=== PATIENT | male | born 1980 | race Caucasian/White ===

== ENCOUNTER 2022-03-23 10:55 | Inpatient (IN) | payer OTHER, SELFPAY ==
[2022-03-23 10:59] VITALS: BP 111/70; PULSE 52; RESP 16; TEMP 36.8; O2SAT 96; BMI 27.0
[2022-03-23 11:13] VITALS: BP 111/70; PULSE 52; RESP 16; TEMP 36.8; O2SAT 96
[2022-03-23 11:33] LABS: SARS PCR* Negative SARS-CoV-2 (Negative)
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
[2022-03-23 12:44] LABS: Lactate* 1.3 mmol/L (0.5-1.9)
[2022-03-23 12:57] LABS: INR 1.08 (0.91-1.10); Prothrombin Time 14.7 Seconds
[2022-03-23 12:59] LABS: Albumin* 4.3 g/dL (3.3-5.0)
[2022-03-23] MEDS: ERTAPENEM 1 GM in 0.9 % SODIUM CHLORIDE Mini-bag 100 ML IVPB (12:59)
[2022-03-23 13:00] LABS: Chloride* 101 mmol/L (96-114); Potassium* 4.1 mmol/L (3.6-5.1); Sodium* 135 mmol/L (135-149)
[2022-03-23 13:02] LABS: Alkaline Phosphatase* 84 U/L (40-150); Aspartate Amino Transferase* 29 U/L (12-35); Bilirubin Total* 1.5 mg/dL (0.1-1.5); Blood Urea Nitrogen* 19 mg/dL (5-24); Carbon Dioxide* 29 mmol/L (20-32); Creatinine* 0.8 mg/dL (0.5-1.5); Est. Creatinine Clearance* 150.05; Estimated Glomerular Filt Rate 113 ml/min; Total Protein* 7.8 g/dL (6.0-8.3)
[2022-03-23 13:03] LABS: Alanine Aminotransferase* 23 U/L (4-50); Calcium* 9.2 mg/dL (8.4-10.6); Gamma Glutamyl Transpeptidase* 186 U/L (8-55); Glucose* 106 mg/dL (60-115)
[2022-03-23 13:19] LABS: Procalcitonin* 0.09 ng/mL (<0.50)
[2022-03-23 13:20] LABS: Ethanol* < 0.01 % (0.01-0.03)
--- NOTE | 2022-03-23 13:54 | CRLHL7_ITS ---
For Patients: As a result of the Century Cures Act, medical imaging exams and procedure reports are released immediately into your electronic medical record. You may view this report before your referring provider. If you have questions, please contact your health care provider. INDICATION: Injury. Red swollen toe. Concern for osteomyelitis. COMPARISON: None provided. TECHNIQUE: Short axis T1 and STIR, long axis T1 and STIR and sagittal T1 and STIR right forefoot sequences. FINDINGS: Indistinct narrowband of T1 and STIR marrow edema in the distal phalanx of the 2nd toe which has indistinct cortex and resorbed appearing tuft. Surrounding heterogeneous expanded edematous soft tissues without organized fluid. Shallow ulcer at the distal margin of the swollen 2nd toe. Small effusion 1st MTP joint and interphalangeal joint of the great toe. Upper normal fluid 2nd and 3rd metatarsophalangeal joints. Mild fatty infiltration and atrophy of the intrinsic muscles for denervation change. Incomplete visualization of probable neuropathic or degenerative cystic foci in the marrow of the proximal visualized 3rd and 4th metatarsals. IMPRESSION: Shallow focal osteomyelitis of the resorbed tuft and distal phalanx 2nd toe with surrounding cellulitis and shallow distal ulcer. Dictated by Severo Blue MD @ 03/23/2022 3:22:32 PM (Electronically Signed)
--- NOTE | 2022-03-23 14:33 | PC.NURSE ---
End of shift note: Pt. ambulated to the floor at 1100, accompanied by spouse. Covid test negative. VSS. HR Bradycardiac. Pt. is alert and oriented x4, denies any pain, N/V/SOB. Pt. IV in right forearm patent. Pt. tolerating reg. diet. Independent to BR and up independently in room/hallway.
[2022-03-23 15:30] VITALS: BP 112/64; PULSE 61; RESP 16; TEMP 36.9; O2SAT 98
[2022-03-23] MEDS: ACETAMINOPHEN 325 MG TABLET PO ×2 (15:35→22:28)
[2022-03-23] MEDS: FOLIC ACID 1 MG TABLET PO (15:35)
[2022-03-23] MEDS: THIAMINE 100 MG TABLET PO (15:35)
--- NOTE | 2022-03-23 17:33 | W.PM.PODPN ---
Podiatry-PN: Subj Subjective Date Seen: 03/23/22 Interval history: Patient seen bedside this afternoon following admission to the hospital. He was seen earlier today in clinic. He overall is doing well without complaint. Progress Note: A&P Assessment and plan (1) Osteomyelitis: Problem details: Second toe right foot Status: Acute Plan 2nd toe with no further purulent drainage. No increased necrotic tissue. Will treat with IV antibiotics for now and plan for definitive distal toe amputation once cellulitis has improved to the point that closure is possible. Recommend saline moistened gauze wet-to-dry dressing changes twice daily. Exam Narrative: Exam Narrative: General: No distress Vascular: Palpable pedal pulses. Capillary fill time less than 3 seconds all digits. Neuro: Diminished sensation to light touch right foot. Derm: Erythema circumferentially around the 2nd toe with extension along the dorsal foot and up the anterior lower leg ending just distal to the knee right foot. Open wound distal aspect of the 2nd toe right with exposed bone. No purulence. Musculoskeletal: Hammertoe deformities lesser digits right. Muscle strength 5/5 all quadrants. MRI: Osteomyelitis distal phalanx 2nd toe right foot. Const: Vital Signs, click to edit/add: Vital Signs - 24 hr 03/23/22 10:59 03/23/22 10:59 03/23/22 11:13 Temperature 98.2 F Pulse Rate [Right Pulse Oximeter] 52 L Respiratory Rate 16 16 16 Blood Pressure [Le ft Arm] 111/70 Pulse Oximetry 96 96 96 Oxygen Delivery Me thod Room Air Room Air Room Air 03/23/22 11:13 03/23/22 15:30 Temperature 98.2 F 98.5 F Pulse Rate [Right Pulse Oximeter] 52 L 61 Respiratory Rate 16 16 Blood Pressure [Le ft Arm] 111/70 112/64 Pulse Oximetry 96 98 Oxygen Delivery Me thod Room Air Room Air Documenting provider has reviewed patient's vital signs: yes Common normals: no apparent distress and oriented x3 General appearance: cooperative and comfortable Neuro: Common normals: oriented x3 Podiatry-PN: Obj Labs Labs: Laboratory Results - last 24 hr 03/23/22 03/23/22 03/23/22 10:56 12:27 12:27 INR Sodium 135 Potassium 4.1 Chloride 101 Carbon Dioxide 29 BUN 19 Creatinine 0.8 Estimated Creat Clear 150.05 Estimated GFR 113 Glucose 106 Hemoglobin A1c Lactate 1.3 Calcium 9.2 Total Bilirubin 1.5 GGT 186 H AST 29 ALT 23 Alkaline Phosphatase 84 Total Protein 7.8 Albumin 4.3 Procalcitonin 0.09 TSH Ethyl Alcohol < 0.01 L SARS-CoV-2 (PCR) Negative SARS-CoV-2 03/23/22 03/23/22 03/23/22 12:27 12:27 12:27 INR 1.08 Sodium Potassium Chloride Carbon Dioxide BUN Creatinine Estimated Creat Clear Estimated GFR Glucose Hemoglobin A1c 4.50 Lactate Calcium Total Bilirubin GGT AST ALT Alkaline Phosphatase Total Protein Albumin Procalcitonin TSH 1.300 Ethyl Alcohol SARS-CoV-2 (PCR) Imaging MR - Other: Radiologist's impression: Osteomyelitis distal phalanx right 2nd toe.
[2022-03-23] MEDS: LACTOBACILLUS ACIDOPHILUS 1 TABLET 2 TAB PO (17:37)
[2022-03-23 19:05] VITALS: BP 112/61; PULSE 62; RESP 16; TEMP 37.5; O2SAT 96
[2022-03-23] MEDS: GABAPENTIN 300 MG CAPSULE PO (20:47)
[2022-03-23] MEDS: allopurinoL 300 MG TABLET PO (20:47)
[2022-03-23] MEDS: DORZOLAMIDE/TIMOLOL 2-0.5% OPHTH 1 DROP EYE-BOTH (20:48)
[2022-03-23] MEDS: SODIUM CHLORIDE 0.9 % (FLUSH) 10 ML SYRINGE 5 ML IVF (20:48)
[2022-03-23] MEDS: LATANOPROST 0.005% OPHTH 1 DROP EYE-BOTH (20:48)
[2022-03-23] MEDS: TRAZODONE HCL 50 MG TABLET 100 MG PO (23:25)
[2022-03-23 23:30] VITALS: BP 104/52; PULSE 69; RESP 16; TEMP 36.6; O2SAT 97
--- NOTE | 2022-03-23 23:31 | PC.NURSE ---
Shift [id number]- Patient up independently in room. He complains of back pain- tylenol given with some relief. He states toe is not really bothersome. MD in and performs dressing change this evening, which is clean, dry and intact. Appetite intact.
[2022-03-24] VITALS (7 sets, daily range): BP systolic 106–134; BP diastolic 62–80; PULSE 54–74; RESP 16–18; TEMP 36.4–37.4; O2SAT 96–100
--- NOTE | 2022-03-24 06:22 | PC.NURSE ---
Addendum entered by Diane Song 03/24/22 06:37: CIWA scores have been 0, CWAS is a spelling error. Addendum entered by Diane Song 03/24/22 06:36: Pt CWAS scores have been 0 Original Note: Pt is alert and oriented x3, pleasant and cooperative. Pt reports 4/10 pain in lower back, PRN medications discussed but pt refused stating the pain is tolerable. Dressing to right toe is CDI. Pt is tolerating regular?and is up IND in room.
[2022-03-24 06:43] LABS: Hematocrit 41.3 % (37.0-53.0); Mean Corpuscular HGB Conc 34 gm/dL (32-36); Mean Corpuscular Hemoglobin 35 pg (26-34); Mean Corpuscular Volume 103 fL (80-100); Platelet Count* 167 K/uL (140-440); White Blood Count* 6.16 K/uL (4.50-11.00)
[2022-03-24 06:44] LABS: Slide Review Reflex No
[2022-03-24 06:52] LABS: Chloride* 103 mmol/L (96-114)
[2022-03-24 06:53] LABS: Potassium* 4.3 mmol/L (3.6-5.1); Sodium* 139 mmol/L (135-149)
[2022-03-24 06:56] LABS: Blood Urea Nitrogen* 16 mg/dL (5-24); Carbon Dioxide* 32 mmol/L (20-32); Creatinine* 0.7 mg/dL (0.5-1.5); Est. Creatinine Clearance* 171.48; Estimated Glomerular Filt Rate 117 ml/min; Glucose* 102 mg/dL (60-115)
[2022-03-24 06:57] LABS: Calcium* 9.3 mg/dL (8.4-10.6)
[2022-03-24 06:59] LABS: C Reactive Protein* 3.3 mg/dL (0.5-1.0)
[2022-03-24 07:12] LABS: Procalcitonin* 0.08 ng/mL (<0.50)
[2022-03-24] MEDS: LACTOBACILLUS ACIDOPHILUS 1 TABLET 2 TAB PO ×3 (07:47→17:55)
[2022-03-24] MEDS: FOLIC ACID 1 MG TABLET PO (08:49)
[2022-03-24] MEDS: GABAPENTIN 100 MG CAPSULE PO ×2 (08:49→14:24)
[2022-03-24] MEDS: MULTIVITAMIN/MINERALS 1 TABLET 1 TAB PO (08:50)
[2022-03-24] MEDS: DORZOLAMIDE/TIMOLOL 2-0.5% OPHTH 1 DROP EYE-BOTH ×2 (08:50→20:47)
[2022-03-24] MEDS: SODIUM CHLORIDE 0.9 % (FLUSH) 10 ML SYRINGE 5 ML IVF ×4 (08:51→20:48)
[2022-03-24] MEDS: ERTAPENEM 1 GM in 0.9 % SODIUM CHLORIDE Mini-bag 100 ML IVPB (12:00)
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
[2022-03-24] MEDS: THIAMINE 100 MG TABLET PO (14:24)
[2022-03-24] MEDS: CEFAZOLIN 2 GM in 0.9 % SODIUM CHLORIDE Mini-bag 100 ML IVPB (17:59)
--- NOTE | 2022-03-24 18:11 | P.PODPN_ITS ---
Podiatry-PN: Subj Subjective Date Seen: 03/24/22 Interval history: Daily Progress Note - Hospital Day #: 2 CC: right 2nd toe osteomyelitis with surrounding cellulitis OVERNIGHT UPDATES FROM STAFF & MED, LAB, IMAGING UPDATES -patient did well overnight. Slept well. Is ambulating in his room without significant pain. His chills have improved. Vital signs are stable. CBC drawn yesterday in the clinic reveals a leukocytosis of 11.6 which is now down to 6.6 CRP was originally 4.48 and is down to 3.3 Uric acid was 3.8 yesterday ESR was 25 This morning's basic electrolytes are normal. Renal function is normal. Wound culture from clinic reveals Staph aureus and E coli. Sensitivities are still pending. MRI right foot shallow focal osteomyelitis of the resorbed tuft and distal phalanx 2nd toe with surrounding cellulitis and shallow distal ulcer. Objective: Vitals: Blood pressure 112/62, respiration rate 18, temp 99.3?, O2 sat 100 General: No distress. Vascular: Palpable pedal pulses. Neuro: Diminished sensation to light touch right. Derm: Erythema and edema are significantly improved right 2nd toe. Erythema extending to the dorsal foot and leg nearly resolved. Open wound distal toe with exposed bone without purulence. No increased necrosis of the surrounding tissues. Musculoskeletal: Flexion deformity 2nd digit right. Muscle strength 5/5 all quadrants. Assessment: Osteomyelitis distal phalanx 2nd toe right, resolving cellulitis 2nd toe right Plan: He has been changed to Ancef which should cover the staph and E coli. Awaiting sensitivities for final determination of outpatient antibiotics. Plan for operating room Monday for amputation of the distal phalanx and primary closure. If culture sensitivities are known at that time plan for discharge home on Monday. Foot packing was removed and saline moistened gauze packing replaced. Sterile dressing applied. Total time is 20 minutes with greater than 50% spent in counseling and coordination of care. Exam 2 Const: Vital Signs, click to edit/add: Vital Signs - 24 hr 03/23/22 19:05 03/23/22 23:30 03/23/22 23:30 Temperature 99.5 F 97.9 F Pulse Rate [Right Pulse Oximeter] 62 69 69 Respiratory Rate 16 16 16 Blood Pressure [Le ft Arm] 112/61 104/52 L Pulse Oximetry 96 97 Oxygen Delivery Me thod Room Air 03/24/22 03:00 03/24/22 07:00 03/24/22 07:00 Temperature 97.5 F L 98.2 F 98.2 F Pulse Rate [Right Pulse Oximeter] 54 L 62 62 Respiratory Rate 16 18 18 Blood Pressure [Le ft Arm] 106/64 110/69 110/69 Pulse Oximetry 98 98 98 Oxygen Delivery Me thod Room Air Room Air Room Air 03/24/22 07:00 03/24/22 11:00 03/24/22 11:00 Temperature 99.1 F 99.1 F Pulse Rate [Right Pulse Oximeter] 62 74 74 Respiratory Rate 18 18 18 Blood Pressure [Le ft Arm] 132/67 132/67 Pulse Oximetry 99 99 Oxygen Delivery Me thod Room Air Room Air 03/24/22 15:00 03/24/22 15:00 03/24/22 15:00 Temperature 99.3 F 99.3 F Pulse Rate [Right Pulse Oximeter] 54 L 54 L 54 L Respiratory Rate 18 18 18 Blood Pressure [Le ft Arm] 112/62 112/62 Pulse Oximetry 100 100 Oxygen Delivery Me thod Room Air Room Air Podiatry-PN: Obj Labs Labs: Laboratory Results - last 24 hr 03/24/22 03/24/22 06:12 06:12 WBC 6.16 RBC 4.00 L Hgb 14.0 Hct 41.3 MCV 103 H MCH 35 H MCHC 34 Plt Count 167 Sodium 139 Potassium 4.3 Chloride 103 Carbon Dioxide 32 BUN 16 Creatinine 0.7 Estimated Creat Clear 171.48 Estimated GFR 117 Glucose 102 Calcium 9.3 C-Reactive Protein 3.3 H Procalcitonin 0.08
--- NOTE | 2022-03-24 18:53 | PC.NURSE ---
End of Shift: Patient pleasant and cooperative. Patient vitally stable, lung clear, BS WNL, IV intact. Patient rates back pain 3/10 no pain meds given. Patient independent in room. Patient dressing change performed x2, second dressing done by serafin. Toe packed with wet to dry gauze, wrapped in kerlix, then talia bandage. Patient tolerating regular diet, urinating, and had 2 BMs. Second great toe inflamed and reddened, scan drainage.
[2022-03-24] MEDS: allopurinoL 300 MG TABLET PO (20:45)
[2022-03-24] MEDS: ACETAMINOPHEN 325 MG TABLET PO (20:45)
[2022-03-24] MEDS: GABAPENTIN 300 MG CAPSULE PO (20:45)
[2022-03-24] MEDS: LATANOPROST 0.005% OPHTH 1 DROP EYE-BOTH (20:48)
[2022-03-24] MEDS: TRAZODONE HCL 50 MG TABLET 100 MG PO (20:54)
[2022-03-25] VITALS (7 sets, daily range): BP systolic 123–138; BP diastolic 66–87; PULSE 52–68; RESP 18; TEMP 36.6–37.2; O2SAT 96–100
[2022-03-25] MEDS: CEFAZOLIN 2 GM in 0.9 % SODIUM CHLORIDE Mini-bag 100 ML IVPB ×3 (01:39→17:40)
[2022-03-25 06:46] LABS: Hematocrit 41.1 % (37.0-53.0); Hemoglobin* 13.9 gm/dL (13.5-17.5); Mean Corpuscular HGB Conc 34 gm/dL (32-36); Mean Corpuscular Hemoglobin 35 pg (26-34); Mean Corpuscular Volume 104 fL (80-100); Platelet Count* 173 K/uL (140-440); Red Blood Count 3.94 m/uL (4.30-5.90); White Blood Count* 4.83 K/uL (4.50-11.00)
--- NOTE | 2022-03-25 06:50 | PC.NURSE ---
VSS on RA. Patient is alert and oriented x4, uses call light appropriately. Pt c/o having dull pain to lower back, but declined pain meds. PRN Tylenol given for low grade temp. Pt is independent with transfers, continent of bowel and bladder. IV antibiotic infused x1 this shift. Pt appears stable, call light within reach.
[2022-03-25 07:03] LABS: Slide Review Reflex No
[2022-03-25 07:08] LABS: Chloride* 107 mmol/L (96-114); Potassium* 3.9 mmol/L (3.6-5.1); Sodium* 141 mmol/L (135-149)
[2022-03-25 07:11] LABS: Carbon Dioxide* 30 mmol/L (20-32); Creatinine* 0.6 mg/dL (0.5-1.5); Est. Creatinine Clearance* 200.06; Estimated Glomerular Filt Rate 123 ml/min
[2022-03-25 07:12] LABS: Blood Urea Nitrogen* 13 mg/dL (5-24); Calcium* 9.3 mg/dL (8.4-10.6); Glucose* 95 mg/dL (60-115)
[2022-03-25 07:26] LABS: Procalcitonin* 0.07 ng/mL (<0.50)
[2022-03-25] MEDS: GABAPENTIN 100 MG CAPSULE PO ×2 (09:05→14:20)
[2022-03-25] MEDS: MULTIVITAMIN/MINERALS 1 TABLET 1 TAB PO (09:05)
[2022-03-25] MEDS: FOLIC ACID 1 MG TABLET PO (09:05)
[2022-03-25] MEDS: LACTOBACILLUS ACIDOPHILUS 1 TABLET 2 TAB PO ×3 (09:05→17:39)
[2022-03-25] MEDS: DORZOLAMIDE/TIMOLOL 2-0.5% OPHTH 1 DROP EYE-BOTH ×2 (09:06→20:28)
[2022-03-25] MEDS: SODIUM CHLORIDE 0.9 % (FLUSH) 10 ML SYRINGE 5 ML IVF ×2 (09:53→20:28)
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
[2022-03-25] MEDS: THIAMINE 100 MG TABLET PO (14:20)
[2022-03-25] MEDS: allopurinoL 300 MG TABLET PO (20:26)
[2022-03-25] MEDS: GABAPENTIN 300 MG CAPSULE PO (20:26)
[2022-03-25] MEDS: LATANOPROST 0.005% OPHTH 1 DROP EYE-BOTH (20:27)
[2022-03-26] VITALS (11 sets, daily range): BP systolic 105–129; BP diastolic 65–85; PULSE 37–50; RESP 16–18; TEMP 36.4–36.7; O2SAT 95–98
[2022-03-26] MEDS: CEFAZOLIN 2 GM in 0.9 % SODIUM CHLORIDE Mini-bag 100 ML IVPB ×2 (01:53→11:20)
[2022-03-26 06:35] LABS: Hematocrit 39.8 % (37.0-53.0); Hemoglobin* 13.3 gm/dL (13.5-17.5); Mean Corpuscular HGB Conc 33 gm/dL (32-36); Mean Corpuscular Hemoglobin 35 pg (26-34); Mean Corpuscular Volume 104 fL (80-100); Platelet Count* 170 K/uL (140-440); Red Blood Count 3.83 m/uL (4.30-5.90); White Blood Count* 5.25 K/uL (4.50-11.00)
[2022-03-26 06:47] LABS: Slide Review Reflex No
[2022-03-26 06:51] LABS: Chloride* 109 mmol/L (96-114)
[2022-03-26 06:52] LABS: Potassium* 4.1 mmol/L (3.6-5.1); Sodium* 140 mmol/L (135-149)
[2022-03-26 06:54] LABS: Creatinine* 0.5 mg/dL (0.5-1.5); Est. Creatinine Clearance* 240.08; Estimated Glomerular Filt Rate 130 ml/min
--- NOTE | 2022-03-26 06:54 | PC.NURSE ---
Shift note: Pt is doing well this shift. NPO status maintained for possible surgery today. Dressing changed, small discharges noted, granulation tissue appears to be filling in. Swelling and redness to the reduced. Make needs and used call light appropriately. Denied Pain, SOB and. Vitally stable.Pt had good night sleep.
[2022-03-26 06:55] LABS: Blood Urea Nitrogen* 12 mg/dL (5-24); Calcium* 8.9 mg/dL (8.4-10.6); Carbon Dioxide* 27 mmol/L (20-32); Glucose* 96 mg/dL (60-115)
[2022-03-26 06:58] LABS: C Reactive Protein* 1.2 mg/dL (0.5-1.0)
[2022-03-26 07:10] LABS: Procalcitonin* 0.06 ng/mL (<0.50)
--- NOTE | 2022-03-26 07:17 | P.PODPN_ITS ---
Podiatry-PN: Subj Subjective Time Seen by Provider: 20:32 Date Seen: 03/25/22 Interval history: Daily Progress Note Day #: 3 CC: right 2nd toe osteomyelitis with surrounding cellulitis OVERNIGHT UPDATES FROM STAFF & MED, LAB, IMAGING UPDATES -patient did well overnight. Slept well. Is ambulating in his room without significant pain. Vital signs are stable. Wound culture from clinic reveals Staph aureus and E coli. Chris sensitive. MRI right foot shallow focal osteomyelitis of the resorbed tuft and distal phalanx 2nd toe with surrounding cellulitis and shallow distal ulcer. Objective: Vitals: Blood pressure 115/74, respiration rate 18, temp 97.9?, O2 sat 97 General: No distress. Vascular: Palpable pedal pulses. Neuro: Diminished sensation to light touch right. Derm: Erythema and edema with continued improvement right 2nd toe. Erythema e xtending to the dorsal foot and leg resolved. Open wound distal toe with exposed bone without purulence. No increased necrosis of the surrounding tissues. Musculoskeletal: Flexion deformity 2nd digit right. Muscle strength 5/5 all quadrants. Assessment: Osteomyelitis distal phalanx 2nd toe right, resolving cellulitis 2nd toe right Plan: Continue Ancef which should cover the staph and E coli. Awaiting sensitivities for final determination of outpatient antibiotics. Plan for operating room tomorrow morning for amputation of the distal phalanx and primary closure. If culture sensitivities are known at that time plan for discharge home on Monday afternoon. Foot packing was removed and saline moistened gauze packing replaced. Sterile dressing applied. Total time is 20 minutes with greater than 50% spent in counseling and coordination of care. Exam Const: Vital Signs, click to edit/add: Vital Signs - 24 hr 03/25/22 08:36 03/25/22 17:05 03/25/22 17:11 Temperature 98.5 F 99 F 99 F Pulse Rate [Right Pulse Oximeter] 67 52 L 52 L Respiratory Rate 18 18 18 Blood Pressure [Le ft Arm] 123/66 138/78 138/78 Pulse Oximetry 96 100 100 Oxygen Delivery Me thod Room Air Room Air Room Air 03/25/22 19:00 03/25/22 21:00 03/25/22 23:00 Temperature 98.9 F 98.9 F 98.9 F Pulse Rate [Right Pulse Oximeter] 57 L 57 L 59 L Respiratory Rate 18 18 18 Blood Pressure [Le ft Arm] 133/77 133/77 137/87 Pulse Oximetry 97 97 97 Oxygen Delivery Me thod Room Air Room Air Room Air 03/26/22 01:00 03/26/22 03:00 03/26/22 05:00 Temperature 97.9 F 97.9 F 97.9 F Pulse Rate [Right Pulse Oximeter] 45 L 45 L 45 L Respiratory Rate 18 18 18 Blood Pressure [Le ft Arm] 115/74 115/74 115/74 Pulse Oximetry 97 97 97 Oxygen Delivery Me thod Room Air Room Air Room Air Podiatry-PN: Obj Labs Labs: Laboratory Results - last 24 hr 03/25/22 03/26/22 03/26/22 06:04 06:10 06:10 WBC 5.25 RBC 3.83 L Hgb 13.3 L Hct 39.8 MCV 104 H MCH 35 H MCHC 33 Plt Count 170 Sodium 141 140 Potassium 3.9 4.1 Chloride 107 109 Carbon Dioxide 30 27 BUN 13 12 Creatinine 0.6 0.5 Estimated Creat Clear 200.06 240.08 Estimated GFR 123 130 Glucose 95 96 Calcium 9.3 8.9 C-Reactive Protein 2.0 H 1.2 H Procalcitonin 0.07 0.06
--- NOTE | 2022-03-26 08:41 | PM.GSPRC ---
Operative Note Date of procedure: 03/26/22 Pre-op diagnosis: Osteomyelitis 2nd toe right foot Post-op diagnosis: Osteomyelitis 2nd toe right foot Type of Procedure: Partial amputation 2nd toe right foot Indications: Patient has underlying osteomyelitis of the 2nd toe right foot. Cellulitis has improved to the point where amputation is possible. I reviewed the procedure, recovery, expectations and potential complications. Discussed the importance of removing the infected bone to resolve the infection completely. Also removing the distal phalanx will reduce chances of future problems. Potential complications discussed which include but are not limited to: Poor wound healing, continued infection, potential need for future surgery, deep venous thrombosis, pulmonary embolism and . All questions answered. Written consent obtained. Procedure Description: After discussing the risks and benefits of the procedure, the patient signed informed consent.? The operative site was marked and the patient was brought to the operating room and placed on the operating table in supine position.? Care was taken to pad the patient's pressure points.?? The patient was then given sedation by anesthesia and I injected the right foot with 10 mL 0.5% Marcaine plain.?? The operative site was then prepped and draped in the usual sterile fashion.? A time-out was then performed. The right foot was exsanguinated and ankle tourniquet inflated to 250 mm Hg. Transverse incision was made proximal to the nail plate directly over the distal interphalangeal joint. Incision coursed distally around the tip of the toe meeting the proximal incision. Incision was carried down through the distal interphalangeal joint in the distal phalanx was disarticulated and removed in total. Surrounding tissues are debrided of any necrotic tissue. There is no purulence overall tissues appeared quite healthy. Bone sent to pathology in formalin. Wound was thoroughly irrigated normal sterile saline. Tourniquet was released and all bleeding vessels cauterized. Incision closed with 3-0 nylon. Following closure the distal toe had excellent capillary fill time. Sterile dressings were then applied. The patient was then woken and transported to [facility] in stable condition. The patient tolerated the procedure well. Findings: Distal phalanx sent to pathology. Complications: None apparent Anesthesia: MAC and local Surgeon: Otoniel Gordillo DPM Estimated blood loss (mL): 5 Additional Specimen Information: Distal phalanx 2nd toe right Condition: stable Disposition: floor
--- NOTE | 2022-03-26 08:49 | W.ANESCHARGE ---
Anesthesia Charges Start Date/Time Anesthesia Start Date: 03/26/22 Anesthesia Start Time: 07:55 Stop Date/Time Anesthesia Stop Date: 03/26/22 Anesthesia Stop Time: 08:42
--- NOTE | 2022-03-26 10:59 | REH.PT ---
Pt educated on crutch use. Able to demonstrate safe and Ind amb with ax crutches. No Charge.
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
== END 2022-03-26 12:15 | disposition home or self-care (01) | DRG 465 ==
PROVIDERS: Podiatrist; Admitting Provider Family Medicine; PCP Family Medicine; Visit Provider Family Medicine
PROC: 0Y6R0Z3 Detachment at Right 2nd Toe, Low, Open Approach (ICD-10-PCS; principal; 2022-03-26 08:00)
DX: M86.171 Other acute osteomyelitis, right ankle and foot (principal); L97.512 Non-pressure chronic ulcer of other part of right foot with fat layer exposed; L03.031 Cellulitis of right toe; G62.9 Polyneuropathy, unspecified; F10.20 Alcohol dependence, uncomplicated; F51.04 Psychophysiologic insomnia; I10 Essential (primary) hypertension; M10.9 Gout, unspecified; F41.9 Anxiety disorder, unspecified; B96.20 Unspecified Escherichia coli [E. coli] as the cause of diseases classified elsewhere; B95.61 Methicillin susceptible Staphylococcus aureus infection as the cause of diseases classified elsewhere
CPT/HCPCS: 01480; 36415; 73718; 80048; 80053; 82077; 82977; 83036; 83605; 84145; 84443; 85027; 85610; 86140; 87040; 87635; 88305; 88311; A9153; A9270; G0378; G0379; J0690; J1100; J1335; J2250; J2405; J2704; J3010

== ENCOUNTER 2022-05-04 08:42 | Emergency (ER) | payer OTHER, SELFPAY ==
[2022-05-04] VITALS (31 sets, daily range): BP systolic 91–135; BP diastolic 53–89; PULSE 38–55; RESP 22; TEMP 35.8; O2SAT 93–100; BMI 26.0
--- NOTE | 2022-05-04 09:05 | ED_ITS ---
HPI - General Adult General Time Seen by Provider: 09:05 <Meghann Duvall MD - Last Filed: 05/04/22 11:25> Date Seen: 05/04/22 <Meghann Duvall MD - Last Filed: 05/04/22 11:25> Chief complaint: Nausea/Vomiting <Meghann Duvall MD - Last Filed: 05/04/22 11:25> Stated complaint: unable to eat - diarrhea <Meghann Duvall MD - Last Filed: 05/04/22 11:25> Time Seen by Provider: 05/04/22 08:53 <Meghann Duvall MD - Last Filed: 05/04/22 11:25> Source: patient and RN notes reviewed <Meghann Duvall MD - Last Filed: 05/04/22 11:25> Mode of arrival: ambulatory <Meghann Duvall MD - Last Filed: 05/04/22 11:25> Limitations: no limitations <Meghann Duvall MD - Last Filed: 05/04/22 11:25> History of Present Illness HPI narrative: This 42-year-old male is coming in with nausea and diarrhea. He has had diarrhea for about 2 weeks now, states this last week has been much worse. Really cannot eat anything, everything is going through. Has had some nausea. Did have dry heaves this morning but it is the 1st time he has had anything like this. He was hospitalized for osteomyelitis and was on antibiotics for an extended period, has been off them about 3 weeks. He does have a history of C difficile colitis and he states it feels exactly like that. He did bring a stool specimen in to clinic and the results was negative yesterday. He has lost reportedly about 25 lb through this. No significant abdominal pain, no blood in stool, no recent travel, no fevers associated with this. Overall feeling weak. <Meghann Duvall MD - Last Filed: 05/04/22 11:25> Related Data Home medications: Home Medications Medication Instructions Recorded Confirmed allopurinol 300 mg tablet 300 mg PO HS 03/23/22 03/23/22 atenolol 50 mg tablet 50 mg PO HS 03/23/22 03/23/22 brimonidine 0.2 %-timolol 0.5 % 1 drp ophthalmic (eye) BID 03/23/22 03/23/22 eye drops hydrochlorothiazide 25 mg tablet 25 mg PO HS 03/23/22 03/23/22 latanoprost 0.005 % eye drops 1 drp ophthalmic (eye) HS 03/23/22 03/23/22 lisinopril 40 mg tablet 40 mg PO HS 03/23/22 03/23/22 melatonin 10 mg capsule 40 mg PO HS PRN 03/23/22 03/23/22 sumatriptan succinate 50 mg tablet See Rx Instructions PO .COMPLEX 03/23/22 03/23/22 (Imitrex) Previous Rx's Medication Instructions Recorded Lactobacillus acidophilus 0.5 mg 1 mg PO TIDWM #60 tabs 03/26/22 (100 million cell) tablet amoxicillin 500 mg-potassium 1 tab PO BID #20 tabs 03/26/22 clavulanate 125 mg tablet (Augmentin) gabapentin 300 mg capsule 300 mg PO HS #30 caps 03/26/22 trazodone 50 mg tablet 100 mg PO HS PRN #30 tabs 03/26/22 <Meghann Duvall MD - Last Filed: 05/04/22 11:25> Allergies/adverse reactions: Allergies Allergy/AdvReac Type Severity Reaction Status Date / Time No Known Drug Allergies Allergy Verified 05/04/22 08:50 <Meghann Duvall MD - Last Filed: 05/04/22 11:25> Review of Systems Status of ROS: Reports: 10 or more systems reviewed and unremarkable except as noted in History and below <Meghann Duvall MD - Last Filed: 05/04/22 11:25> [facility] Medical History: Medical History Alcohol dependence, daily use Chronic insomnia Glaucoma Gout History of Clostridium difficile colitis History of sepsis History of upper gastrointestinal hemorrhage Hypertension Migraines Neuropathy <Meghann Duvall MD - Last Filed: 05/04/22 11:25> Surgical History: Surgical History Status post appendectomy <Meghann Duvall MD - Last Filed: 05/04/22 11:25> Family History: Family History Mother VTE (venous thromboembolism) <Meghann Duvall MD - Last Filed: 05/04/22 11:25> Social History: 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 Chews tobacco daily. 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 Vielka is emergency contact Designates full code status Highest level of school completed/degree received: high school graduate Smoking Status: Never smoker Do you use any of these nicotine containing products: Smokeless Tobacco Second hand tobacco smoke exposure: No How often do you have a drink containing alcohol: 4 or more times a week Alcohol type: beer and wine How many standard drinks containing alcohol do you have on a typical day: 1 or 2 How often do you have six or more drinks on one occasion: Weekly AUDIT-C Alcohol total score: 7 Non-prescribed substance use: denies use Caffeine: No service: No <Meghann Duvall MD - Last Filed: 05/04/22 11:25> Exam Const: Vital Signs, click to edit/add: Vital Signs - 24 hr 05/04/22 08:50 05/04/22 09:40 05/04/22 08:57 Temperature 96.5 F L Pulse Rate 50 L Pulse Rate [Pulse Oximeter] 55 L Respiratory Rate 22 Blood Pressure Blood Pressure [Le ft Upper Arm] 120/89 Pulse Oximetry 100 94 100 Oxygen Delivery Me thod Room Air 05/04/22 09:00 05/04/22 09:01 05/04/22 09:15 Temperature Pulse Rate 50 L 47 L 47 L Pulse Rate [Pulse Oximeter] Respiratory Rate Blood Pressure 107/69 Blood Pressure [Le ft Upper Arm] Pulse Oximetry 99 97 95 Oxygen Delivery Me thod 05/04/22 09:30 05/04/22 09:32 05/04/22 09:45 Temperature Pulse Rate 45 L 45 L 41 L Pulse Rate [Pulse Oximeter] Respiratory Rate Blood Pressure 107/59 L Blood Pressure [Le ft Upper Arm] Pulse Oximetry 97 96 95 Oxygen Delivery Me thod 05/04/22 10:00 05/04/22 10:02 05/04/22 10:15 Temperature Pulse Rate 39 L 44 L 38 L Pulse Rate [Pulse Oximeter] Respiratory Rate Blood Pressure 91/58 L Blood Pressure [Le ft Upper Arm] Pulse Oximetry 94 96 93 Oxygen Delivery Me thod 05/04/22 10:30 05/04/22 10:32 05/04/22 10:45 Temperature Pulse Rate 39 L 50 L 43 L Pulse Rate [Pulse Oximeter] Respiratory Rate Blood Pressure 109/71 Blood Pressure [Le ft Upper Arm] Pulse Oximetry 97 98 97 Oxygen Delivery Me thod 05/04/22 11:00 05/04/22 11:02 05/04/22 11:03 Temperature Pulse Rate 42 L 49 L 41 L Pulse Rate [Pulse Oximeter] Respiratory Rate Blood Pressure 115/60 Blood Pressure [Le ft Upper Arm] Pulse Oximetry 99 99 99 Oxygen Delivery Me thod 05/04/22 11:24 05/04/22 11:30 05/04/22 11:32 Temperature Pulse Rate 50 L 48 L 47 L Pulse Rate [Pulse Oximeter] Respiratory Rate Blood Pressure 113/64 Blood Pressure [Le ft Upper Arm] Pulse Oximetry 100 95 97 Oxygen Delivery Me thod 05/04/22 11:45 05/04/22 12:00 05/04/22 12:02 Temperature Pulse Rate 39 L 40 L 45 L Pulse Rate [Pulse Oximeter] Respiratory Rate Blood Pressure 135/73 Blood Pressure [Le ft Upper Arm] Pulse Oximetry 95 95 97 Oxygen Delivery Me thod 05/04/22 12:15 05/04/22 12:30 05/04/22 12:32 Temperature Pulse Rate 38 L 39 L 39 L Pulse Rate [Pulse Oximeter] Respiratory Rate Blood Pressure 102/53 L Blood Pressure [Le ft Upper Arm] Pulse Oximetry 93 96 95 Oxygen Delivery Me thod 05/04/22 12:45 05/04/22 13:00 05/04/22 13:02 Temperature Pulse Rate 39 L 43 L 39 L Pulse Rate [Pulse Oximeter] Respiratory Rate Blood Pressure 115/63 Blood Pressure [Le ft Upper Arm] Pulse Oximetry 96 95 95 Oxygen Delivery Me thod 05/04/22 13:15 Temperature Pulse Rate 45 L Pulse Rate [Pulse Oximeter] Respiratory Rate Blood Pressure Blood Pressure [Le ft Upper Arm] Pulse Oximetry 98 Oxygen Delivery Me thod <Meghann Duvall MD - Last Filed: 05/04/22 11:25> Vital Signs, click to edit/add: Vital Signs - 24 hr 05/04/22 08:50 05/04/22 09:40 05/04/22 08:57 Temperature 96.5 F L Pulse Rate 50 L Pulse Rate [Pulse Oximeter] 55 L Respiratory Rate 22 Blood Pressure Blood Pressure [Le ft Upper Arm] 120/89 Pulse Oximetry 100 94 100 Oxygen Delivery Me thod Room Air 05/04/22 09:00 05/04/22 09:01 05/04/22 09:15 Temperature Pulse Rate 50 L 47 L 47 L Pulse Rate [Pulse Oximeter] Respiratory Rate Blood Pressure 107/69 Blood Pressure [Le ft Upper Arm] Pulse Oximetry 99 97 95 Oxygen Delivery Me thod 05/04/22 09:30 05/04/22 09:32 05/04/22 09:45 Temperature Pulse Rate 45 L 45 L 41 L Pulse Rate [Pulse Oximeter] Respiratory Rate Blood Pressure 107/59 L Blood Pressure [Le ft Upper Arm] Pulse Oximetry 97 96 95 Oxygen Delivery Me thod 05/04/22 10:00 05/04/22 10:02 05/04/22 10:15 Temperature Pulse Rate 39 L 44 L 38 L Pulse Rate [Pulse Oximeter] Respiratory Rate Blood Pressure 91/58 L Blood Pressure [Le ft Upper Arm] Pulse Oximetry 94 96 93 Oxygen Delivery Me thod 05/04/22 10:30 05/04/22 10:32 05/04/22 10:45 Temperature Pulse Rate 39 L 50 L 43 L Pulse Rate [Pulse Oximeter] Respiratory Rate Blood Pressure 109/71 Blood Pressure [Le ft Upper Arm] Pulse Oximetry 97 98 97 Oxygen Delivery Me thod 05/04/22 11:00 05/04/22 11:02 05/04/22 11:03 Temperature Pulse Rate 42 L 49 L 41 L Pulse Rate [Pulse Oximeter] Respiratory Rate Blood Pressure 115/60 Blood Pressure [Le ft Upper Arm] Pulse Oximetry 99 99 99 Oxygen Delivery Me thod 05/04/22 11:24 05/04/22 11:30 05/04/22 11:32 Temperature Pulse Rate 50 L 48 L 47 L Pulse Rate [Pulse Oximeter] Respiratory Rate Blood Pressure 113/64 Blood Pressure [Le ft Upper Arm] Pulse Oximetry 100 95 97 Oxygen Delivery Me thod 05/04/22 11:45 05/04/22 12:00 05/04/22 12:02 Temperature Pulse Rate 39 L 40 L 45 L Pulse Rate [Pulse Oximeter] Respiratory Rate Blood Pressure 135/73 Blood Pressure [Le ft Upper Arm] Pulse Oximetry 95 95 97 Oxygen Delivery Me thod 05/04/22 12:15 05/04/22 12:30 05/04/22 12:32 Temperature Pulse Rate 38 L 39 L 39 L Pulse Rate [Pulse Oximeter] Respiratory Rate Blood Pressure 102/53 L Blood Pressure [Le ft Upper Arm] Pulse Oximetry 93 96 95 Oxygen Delivery Me thod 05/04/22 12:45 05/04/22 13:00 05/04/22 13:02 Temperature Pulse Rate 39 L 43 L 39 L Pulse Rate [Pulse Oximeter] Respiratory Rate Blood Pressure 115/63 Blood Pressure [Le ft Upper Arm] Pulse Oximetry 96 95 95 Oxygen Delivery Me thod 05/04/22 13:15 Temperature Pulse Rate 45 L Pulse Rate [Pulse Oximeter] Respiratory Rate Blood Pressure Blood Pressure [Le ft Upper Arm] Pulse Oximetry 98 Oxygen Delivery Me thod <Eitan Avelar MD - Last Filed: 05/04/22 14:40> Documenting provider has reviewed patient's vital signs: yes <Meghann Duvall MD - Last Filed: 05/04/22 11:25> Common normals: no apparent distress, average body habitus, oriented x3, no limitations and alert <Meghann Duvall MD - Last Filed: 05/04/22 11:25> General appearance: cooperative, comfortable, well kempt and well developed <Meghann Duvall MD - Last Filed: 05/04/22 11:25> Other: In no distress but looks like he does not feel well. <Meghann Duvall MD - Last Filed: 05/04/22 11:25> HENMT: Common normals: normocephalic, head/scalp atraumatic, hearing grossly normal bilaterally, external nose normal, moist oral mucous membranes, oropharynx normal, dentition normal and gingiva normal <Meghann Perez MD - Last Filed: 05/04/22 11:25> Head and scalp: normocephalic and atraumatic <Meghann Duvall MD - Last Filed: 05/04/22 11:25> Nose: external nose normal <Meghann Duvall MD - Last Filed: 05/04/22 11:25> Eye: Common normals: PERRL, EOMs intact bilaterally, conjunctivae normal and no scleral icterus <Meghann Duvall MD - Last Filed: 05/04/22 11:25> Conjunctiva: conjunctiva(e) normal <Meghann Duvall MD - Last Filed: 05/04/22 11:25> Pupil: PERRL <Meghann Duvall MD - Last Filed: 05/04/22 11:25> Neck & C-Spine: Common normals: full ROM, no lymphadenopathy, supple, no meningeal signs, no JVD and thyroid normal <Meghann Duvall MD - Last Filed: 05/04/22 11:25> Thyroid: thyroid normal <Meghann Duvall MD - Last Filed: 05/04/22 11:25> Resp: Common normals: normal respiratory effort, no retractions, no use of accessory muscles and clear to auscultation bilaterally <Meghann Perez MD - Last Filed: 05/04/22 11:25> Auscultation: clear to auscultation bilaterally <Meghann Duvall MD - Last Filed: 05/04/22 11:25> Cardio: Common normals: no JVD, regular rate, regular rhythm, S1 normal heart sound, S2 normal heart sound, no gallops, no clicks and no murmurs <Meghann Duvall MD - Last Filed: 05/04/22 11:25> Rate: regular rate <Meghann Duvall MD - Last Filed: 05/04/22 11:25> Rhythm: regular rhythm <Meghann Duvall MD - Last Filed: 05/04/22 11:25> Heart sounds: S1 normal and S2 normal <Meghann Duvall MD - Last Filed: 05/04/22 11:25> GI: Common normals: Normal to inspection, nondistended, normoactive bowel sounds present, soft to palpation, non-tender, no hepatosplenomegaly and no masses <Meghann Duvall MD - Last Filed: 05/04/22 11:25> Palpation: soft and no hepatosplenomegaly <Meghann Duvall MD - Last Filed: 05/04/22 11:25> Extremity: Other: Bandaging was removed from his right 2nd toe. The distal bulb has some scabbing on it and looks mildly ecchymotic/dusky. Patient states this is looking stable. <Meghann Duvall MD - Last Filed: 05/04/22 11:25> Neuro: Common normals: oriented x3 <Meghann Duvall MD - Last Filed: 05/04/22 11:25> Sensorium/orientation: alert <Meghann Duvall MD - Last Filed: 05/04/22 11:25> Meningeal signs: no meningeal signs <Meghann Duvall MD - Last File d: 05/04/22 11:25> Psych: Appearance: well kempt <Meghann Duvall MD - Last Filed: 05/04/22 11:25> Course Course Hospital Course: Will place an IV, give him a L of normal saline and 4 mg IV Zofran. We will check a full complement of labs. 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 There certainly could be other causes of diarrhea and other causes of diarrheal illness, none C difficile colitis. We have reviewed that sometimes patients will proceed with CT imaging and possibly colonoscopy if the source is not readily identifiable. He currently is hemodynamically stable, afebrile. Will screen for COVID in case he may need hospitalization. <Meghann Perez MD - Last Filed: 05/04/22 11:25> Reevaluation(s) Reevaluation #1: Nursing staff reported blood pressure 90s over 60s. Patient is not symptomatic. Reviewed with them the normal labs outside indicators of dehydration with a mildly low bicarb and slightly elevated lactate of 2.3. His white count is normal, C reactive protein normal. Discuss next steps. They would like to proceed with CT imaging. He has not produced any stool here. I would still recommend collecting stool specimen and re-evaluating C difficile possibility. With his white count inflammatory marker being normal, does make this possibly less likely to be C difficile colitis. His history however just would seem to be so likely for a C difficile colitis given the recent antibiotic use for osteomyelitis. We have initiated another L of fluids. He has been holding his hydrochlorothiazide but has been taking his atenolol and lisinopril, did take it last night. Did discuss with his we may need to hold his bayron nopril through this or maybe use half dose of his 40 mg. She can monitor his blood pressure at home, she is a tissue recovery technician. <Meghann Duvall MD - Last Filed: 05/04/22 11:25> Time: 10:33 <Meghann Duvall MD - Last Filed: 05/04/22 11:25> Vital Signs Vital signs: Initial Vital Signs Temperature 96.5 F L 05/04/22 08:50 Temperature Source Temporal Artery Scan 05/04/22 08:50 Pulse Rate 55 L 05/04/22 08:50 Pulse Rhythm 05/04/22 08:50 Respiratory Rate 22 05/04/22 08:50 Blood Pressure 120/89 05/04/22 08:50 Blood Pressure Mean 99 05/04/22 08:50 Blood Pressure Position Supine 05/04/22 08:50 Pulse Oximetry 100 05/04/22 08:50 Oxygen Delivery Method 05/04/22 08:50 Vital Signs Temperature 96.5 F L 05/04/22 08:50 Pulse Rate 55 L 05/04/22 08:50 Respiratory Rate 22 05/04/22 08:50 Blood Pressure 120/89 05/04/22 08:50 Pulse Oximetry 100 05/04/22 08:50 Oxygen Delivery Method 05/04/22 08:50 Temperature 96.5 F L 05/04/22 08:50 Pulse Rate 45 L 05/04/22 13:15 Respiratory Rate 22 05/04/22 08:50 Blood Pressure 115/63 05/04/22 13:02 Pulse Oximetry 98 05/04/22 13:15 Oxygen Delivery Method 05/04/22 08:50 <Meghann Duvall MD - Last Filed: 05/04/22 11:25> Initial Vital Signs Temperature 96.5 F L 05/04/22 08:50 Temperature Source Temporal Artery Scan 05/04/22 08:50 Pulse Rate 55 L 05/04/22 08:50 Pulse Rhythm 05/04/22 08:50 Respiratory Rate 22 05/04/22 08:50 Blood Pressure 120/89 05/04/22 08:50 Blood Pressure Mean 99 05/04/22 08:50 Blood Pressure Position Supine 05/04/22 08:50 Pulse Oximetry 100 05/04/22 08:50 Oxygen Delivery Method 05/04/22 08:50 Vital Signs Temperature 96.5 F L 05/04/22 08:50 Pulse Rate 55 L 05/04/22 08:50 Respiratory Rate 22 05/04/22 08:50 Blood Pressure 120/89 05/04/22 08:50 Pulse Oximetry 100 05/04/22 08:50 Oxygen Delivery Method 05/04/22 08:50 Temperature 96.5 F L 05/04/22 08:50 Pulse Rate 45 L 05/04/22 13:15 Respiratory Rate 22 05/04/22 08:50 Blood Pressure 115/63 05/04/22 13:02 Pulse Oximetry 98 05/04/22 13:15 Oxygen Delivery Method 05/04/22 08:50 <Eitan Avelar MD - Last Filed: 05/04/22 14:40> Medical Decision Making MDM Narrative Medical decision making narrative: Patient's CT scan shows some fluid levels in the large bowel consistent with diarrhea, no evidence of colitis or diverticulitis. I think we should have him collect AC diff at home, they can bring that back is left no sample yet he feels better since he has been in the ER got rehydrate his blood pressure looks better. He will hold his he is already holding his hydrochlorothiazide will hold his EULALIO-inhibitor as well. Will follow up with primary care in the next few days certainly sooner changes concerns, will follow up the C diff at home as needed. Recommend light activity fluids and yogurt to eat and recheck as needed in the ED, follow-up with primary care in the next 2-3 days. Continue to monitor blood pressure at home. <Eitan Avelar MD - Last Filed: 05/04/22 14:40> Lab Data Lab results reviewed: Yes I reviewed the patient's lab results <Meghann Duvall MD - Last Filed: 05/04/22 11:25> Labs: Lab Results 05/04/22 05/04/22 05/04/22 Range/Units 09:30 09:30 09:30 WBC 4.93 (4.50-11.00) K/uL RBC 4.68 (4.30-5.90) m/uL Hgb 15.9 (13.5-17.5) gm/dL Hct 43.9 (37.0-53.0) % MCV 94 (80-100) fL MCH 34 (26-34) pg MCHC 36 (32-36) gm/dL RDW Coeff of Juni 11.7 (11.5-15.5) % Plt Count 200 (140-440) K/uL Neut % (Auto) 68.0 (42.0-72.0) % Lymph % (Auto) 22.7 (20-44) % [place] % (Auto) 8.1 (0.0-11.0) % Eos % (Auto) 0.8 (0.0-7.0) % Baso % (Auto) 0.2 (0.0-3.0) % Neut # (Auto) 3.35 (1.7-7.0) K/uL Lymph # (Auto) 1.12 (0.90-2.90) K/uL [place] # (Auto) 0.40 (0.00-0.90) K/UL Eos # (Auto) 0.04 (0.00-0.50) K/uL Baso # (Auto) 0.01 (0.00-0.30) K/uL Sodium 135 (135-149) mmol/L Potassium 3.6 (3.6-5.1) mmol/L Chloride 103 (96-114) mmol/L Carbon Dioxide 19 L (20-32) mmol/L BUN 21 (5-24) mg/dL Creatinine 0.9 (0.5-1.5) mg/dL Estimated Creat Clear 132.00 Estimated GFR 108 ml/min Glucose 111 (60-115) mg/dL Lactate 2.3 H (0.5-1.9) mmol/L Calcium 10.0 (8.4-10.6) mg/dL Total Bilirubin 1.4 (0.1-1.5) mg/dL AST 31 (12-35) U/L ALT 38 (4-50) U/L Alkaline Phosphatase 80 (40-150) U/L C-Reactive Protein < 0.5 L (0.5-1.0) mg/dL Total Protein 8.3 (6.0-8.3) g/dL Albumin 4.8 (3.3-5.0) g/dL SARS-CoV-2 (PCR) (Negative) 05/04/22 Range/Units 09:34 WBC (4.50-11.00) K/uL RBC (4.30-5.90) m/uL Hgb (13.5-17.5) gm/dL Hct (37.0-53.0) % MCV (80-100) fL MCH (26-34) pg MCHC (32-36) gm/dL RDW Coeff of Juni (11.5-15.5) % Plt Count (140-440) K/uL Neut % (Auto) (42.0-72.0) % Lymph % (Auto) (20-44) % [place] % (Auto) (0.0-11.0) % Eos % (Auto) (0.0-7.0) % Baso % (Auto) (0.0-3.0) % Neut # (Auto) (1.7-7.0) K/uL Lymph # (Auto) (0.90-2.90) K/uL [place] # (Auto) (0.00-0.90) K/UL Eos # (Auto) (0.00-0.50) K/uL Baso # (Auto) (0.00-0.30) K/uL Sodium (135-149) mmol/L Potassium (3.6-5.1) mmol/L Chloride (96-114) mmol/L Carbon Dioxide (20-32) mmol/L BUN (5-24) mg/dL Creatinine (0.5-1.5) mg/dL Estimated Creat Clear Estimated GFR ml/min Glucose (60-115) mg/dL Lactate (0.5-1.9) mmol/L Calcium (8.4-10.6) mg/dL Total Bilirubin (0.1-1.5) mg/dL AST (12-35) U/L ALT (4-50) U/L Alkaline Phosphatase (40-150) U/L C-Reactive Protein (0.5-1.0) mg/dL Total Protein (6.0-8.3) g/dL Albumin (3.3-5.0) g/dL SARS-CoV-2 (PCR) Negative SARS-CoV-2 (Negative) <Meghann Duvall MD - Last Filed: 05/04/22 11:25> Lab Results 05/04/22 05/04/22 05/04/22 Range/Units 09:30 09:30 09:30 WBC 4.93 (4.50-11.00) K/uL RBC 4.68 (4.30-5.90) m/uL Hgb 15.9 (13.5-17.5) gm/dL Hct 43.9 (37.0-53.0) % MCV 94 (80-100) fL MCH 34 (26-34) pg MCHC 36 (32-36) gm/dL RDW Coeff of Juni 11.7 (11.5-15.5) % Plt Count 200 (140-440) K/uL Neut % (Auto) 68.0 (42.0-72.0) % Lymph % (Auto) 22.7 (20-44) % [place] % (Auto) 8.1 (0.0-11.0) % Eos % (Auto) 0.8 (0.0-7.0) % Baso % (Auto) 0.2 (0.0-3.0) % Neut # (Auto) 3.35 (1.7-7.0) K/uL Lymph # (Auto) 1.12 (0.90-2.90) K/uL [place] # (Auto) 0.40 (0.00-0.90) K/UL Eos # (Auto) 0.04 (0.00-0.50) K/uL Baso # (Auto) 0.01 (0.00-0.30) K/uL Sodium 135 (135-149) mmol/L Potassium 3.6 (3.6-5.1) mmol/L Chloride 103 (96-114) mmol/L Carbon Dioxide 19 L (20-32) mmol/L BUN 21 (5-24) mg/dL Creatinine 0.9 (0.5-1.5) mg/dL Estimated Creat Clear 132.00 Estimated GFR 108 ml/min Glucose 111 (60-115) mg/dL Lactate 2.3 H (0.5-1.9) mmol/L Calcium 10.0 (8.4-10.6) mg/dL Total Bilirubin 1.4 (0.1-1.5) mg/dL AST 31 (12-35) U/L ALT 38 (4-50) U/L Alkaline Phosphatase 80 (40-150) U/L C-Reactive Protein < 0.5 L (0.5-1.0) mg/dL Total Protein 8.3 (6.0-8.3) g/dL Albumin 4.8 (3.3-5.0) g/dL SARS-CoV-2 (PCR) (Negative) 05/04/22 Range/Units 09:34 WBC (4.50-11.00) K/uL RBC (4.30-5.90) m/uL Hgb (13.5-17.5) gm/dL Hct (37.0-53.0) % MCV (80-100) fL MCH (26-34) pg MCHC (32-36) gm/dL RDW Coeff of Juni (11.5-15.5) % Plt Count (140-440) K/uL Neut % (Auto) (42.0-72.0) % Lymph % (Auto) (20-44) % [place] % (Auto) (0.0-11.0) % Eos % (Auto) (0.0-7.0) % Baso % (Auto) (0.0-3.0) % Neut # (Auto) (1.7-7.0) K/uL Lymph # (Auto) (0.90-2.90) K/uL [place] # (Auto) (0.00-0.90) K/UL Eos # (Auto) (0.00-0.50) K/uL Baso # (Auto) (0.00-0.30) K/uL Sodium (135-149) mmol/L Potassium (3.6-5.1) mmol/L Chloride (96-114) mmol/L Carbon Dioxide (20-32) mmol/L BUN (5-24) mg/dL Creatinine (0.5-1.5) mg/dL Estimated Creat Clear Estimated GFR ml/min Glucose (60-115) mg/dL Lactate (0.5-1.9) mmol/L Calcium (8.4-10.6) mg/dL Total Bilirubin (0.1-1.5) mg/dL AST (12-35) U/L ALT (4-50) U/L Alkaline Phosphatase (40-150) U/L C-Reactive Protein (0.5-1.0) mg/dL Total Protein (6.0-8.3) g/dL Albumin (3.3-5.0) g/dL SARS-CoV-2 (PCR) Negative SARS-CoV-2 (Negative) <Eitan Avelar MD - Last Filed: 05/04/22 14:40> Discharge Plan Discharge Clinical Impression: Diarrhea <Meghann Duvall MD - Last Filed: 05/04/22 11:25> Patient Disposition: Home w/ Parent or Adult <Meghann Duvall MD - Last Filed: 05/04/22 11:25> Instructions: Acute Diarrhea (ED), Nutrition Tips for Relief of Diarrhea (ED) <Meghann Duvall MD - Last Filed: 05/04/22 11:25> Additional Instructions: Stay on atenolol, continue holding hydrochlorothiazide right now. Would recommend holding lisinopril . Obtain a C diff sample at home. Update regular doctor next 2-3 days, return to ED as needed sooner. <Meghann Duvall MD - Last Filed: 05/04/22 11:25> Prescriptions: No Action allopurinol 300 mg tablet 300 mg PO HS Label Comments: TAKE 1 TABLET BY MOUTH ONCE DAILY. atenolol 50 mg tablet 50 mg PO HS Label Comments: TAKE 1 TABLET BY MOUTH EVERY DAY brimonidine-timolol 0.2-0.5 % drops 1 drp ophthalmic (eye) BID hydrochlorothiazide 25 mg tablet 25 mg PO HS Label Comments: TAKE 1 TABLET BY MOUTH EVERY DAY latanoprost 0.005 % drops 1 drp ophthalmic (eye) HS lisinopril 40 mg tablet 40 mg PO HS Label Comments: TAKE 1 TABLET BY MOUTH EVERY DAY melatonin 10 mg capsule 40 mg PO HS PRN sumatriptan succinate [Imitrex] 50 mg tablet See Rx Instructions .ROUTE .COMPLEX Rx Instructions: take 1 tab at onset of headache; if no relief may repeat 1 tab after at least 2 hrs; max = 4 tabs/24 hr gabapentin 300 mg Capsule 300 mg PO HS Qty: 30 0RF Lactobacillus acidophilus 0.5 mg (100 million cell) Tablet 1 mg PO TIDWM Qty: 60 0RF trazodone 50 mg Tablet 100 mg PO HS PRNQty: 30 0RF amoxicillin-pot clavulanate [Augmentin] 500-125 mg tablet 1 tab PO BID Qty: 20 0RF <Meghann Duvall MD - Last Filed: 05/04/22 11:25> Follow Up/Referrals: Leonid Haro MD [Primary Care Provider] - <Meghann Duvall MD - Last Filed: 05/04/22 11:25> Stand Alone Forms: My[facility] Info Instructions <Meghann Duvall MD - Last Filed: 05/04/22 11:25>
[2022-05-04] MEDS: 0.9 % SODIUM CHLORIDE 1000 ml 1,000 ML IV ×2 (09:35→10:28)
[2022-05-04] MEDS: ONDANSETRON 2 MG/ML inj 4 MG IVP (09:38)
[2022-05-04 09:40] LABS: Lactate* 2.3 mmol/L (0.5-1.9)
[2022-05-04 09:42] LABS: Basophils Absolute Auto 0.01 K/uL (0.00-0.30); Basophils Percent Auto 0.2 % (0.0-3.0); Eosinophils Absolute Auto 0.04 K/uL (0.00-0.50); Eosinophils Percent Auto 0.8 % (0.0-7.0); Hematocrit 43.9 % (37.0-53.0); Hemoglobin* 15.9 gm/dL (13.5-17.5); Immature Granulocytes Abs Auto 0.01 K/uL (0.00-0.30); Immature Granulocytes Pct Auto 0.2 %; Lymphocytes Absolute Auto 1.12 K/uL (0.90-2.90); Lymphocytes Percent Auto 22.7 % (20-44); Mean Corpuscular HGB Conc 36 gm/dL (32-36); Mean Corpuscular Hemoglobin 34 pg (26-34); Mean Corpuscular Volume 94 fL (80-100); Monocytes Percent Auto 8.1 % (0.0-11.0); Neutrophils Absolute Auto 3.35 K/uL (1.7-7.0); Platelet Count* 200 K/uL (140-440); RDW Coefficient of Variation % 11.7 % (11.5-15.5); Red Blood Count 4.68 m/uL (4.30-5.90); White Blood Count* 4.93 K/uL (4.50-11.00)
[2022-05-04 09:47] LABS: Slide Review Reflex No
[2022-05-04 09:56] LABS: Albumin* 4.8 g/dL (3.3-5.0); Chloride* 103 mmol/L (96-114); Sodium* 135 mmol/L (135-149)
[2022-05-04 09:57] LABS: Potassium* 3.6 mmol/L (3.6-5.1)
[2022-05-04 09:59] LABS: Bilirubin Total* 1.4 mg/dL (0.1-1.5); Creatinine* 0.9 mg/dL (0.5-1.5); Estimated Glomerular Filt Rate 108 ml/min
[2022-05-04 10:00] LABS: Alanine Aminotransferase* 38 U/L (4-50); Alkaline Phosphatase* 80 U/L (40-150); Aspartate Amino Transferase* 31 U/L (12-35); Blood Urea Nitrogen* 21 mg/dL (5-24); Carbon Dioxide* 19 mmol/L (20-32); Glucose* 111 mg/dL (60-115); Total Protein* 8.3 g/dL (6.0-8.3)
[2022-05-04 10:03] LABS: C Reactive Protein* < 0.5 mg/dL (0.5-1.0)
[2022-05-04 10:24] LABS: SARS PCR* Negative SARS-CoV-2 (Negative)
--- NOTE | 2022-05-04 10:33 | CRLHL7_ITS ---
For Patients: As a result of the Century Cures Act, medical imaging exams and procedure reports are released immediately into your electronic medical record. You may view this report before your referring provider. If you have questions, please contact your health care provider. INDICATION: diarrhea x 2 weeks, weight loss, chills TECHNIQUE: CT abdomen and pelvis with 106cc Isovue 370 IV contrast. COMPARISON: CT abdomen pelvis September 04, 2017 FINDINGS: The liver is normal in size, shape and attenuation. Gallbladder and biliary tree are normal. The spleen, adrenal glands and pancreas are within normal limits. The kidneys are unremarkable. No hydronephrosis. The bladder appears unremarkable. No evidence of bowel obstruction or inflammation. Status post appendectomy. Colonic diverticulosis without evidence of acute diverticulitis. No significant free fluid and no free air. Pelvic organs are unremarkable. Abdominal aorta normal caliber with mild atherosclerosis. The lower chest is unremarkable. Chronic bilateral L5 pars defects with grade 1 anterolisthesis L5 on S1, unchanged. Multilevel degenerative spondylosis. IMPRESSION: Partially fluid-filled colon which is nonspecific but can be seen in the setting of diarrheal state. Colonic diverticulosis without evidence of acute diverticulitis. Otherwise, no evidence of acute intra-abdominal process. Please note that all CT scans at this facility use dose modulation, iterative reconstruction, and/or weight-based dosing when appropriate to reduce radiation dose to as low as reasonably achievable. Dictated by Harman Skelton MD @ 05/04/2022 12:57:32 PM (Electronically Signed)
--- NOTE | 2022-05-04 13:33 | ED.NURSE ---
dc to home. does have c dif request. does feel better.
[2022-05-04 15:07] LABS: C.Difficile Negative (Negative); CDIFFEPI 027 PRESUMPTIVE NEGATIVE (Negative)
== END 2022-05-04 13:32 | disposition home or self-care (01) ==
PROVIDERS: Family Medicine; Emergency Provider Family Medicine; PCP Family Medicine
DX: R11.10 Vomiting, unspecified (principal); R19.7 Diarrhea, unspecified
CPT/HCPCS: 36415; 74177; 80053; 83605; 85025; 86140; 87045; 87046; 87177; 87209; 87427; 87493; 87635; 94761; 96374; 99283; 99284; J2405; J7030; Q9967

== ENCOUNTER 2022-05-11 16:45 | Inpatient (IN) | payer OTHER, SELFPAY ==
[2022-05-11 16:53] VITALS: BP 128/81; PULSE 69; RESP 24; TEMP 37.1; O2SAT 99; BMI 25.9
--- NOTE | 2022-05-11 17:07 | ED_ITS ---
HPI - General Adult General Time Seen by Provider: 17:07 Date Seen: 05/11/22 Chief complaint: Extremity Pain/Injury, Lower Stated complaint: Infection Time Seen by Provider: 05/11/22 16:46 Source: patient, RN notes reviewed and other Mode of arrival: ambulatory Limitations: no limitations History of Present Illness HPI narrative: Patient is a 42-year-old male that was referred to us by Dr. Gordillo for concern of right foot infection. Patient is a known non diabetic with neuropathy that had right 2nd toe osteomyelitis and was hospitalized about 7 weeks ago per the perfume and toilet water maker. He had 3 organisms including E coli, Pseudomonas and Staph aureus. The only antibiotic that showed coverage for all 3 of these organisms was Levaquin. He was in clinic for follow-up yesterday and part of the flap had . He had cleaned the necrotic tissue up. The 2nd toe was a little bit red and swollen. He did send a prescription for Levaquin which the patient did not take until today about 2 hours ago. 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 Throughout the day the patient has developed chills. The foot has become more red and swollen. Again he has peripheral neuropathy from an old injury in this leg. No documented fever yet. I had seen patient recently for diarrhea, 2 separate C difficile tests were negative. He has some diarrhea but overall it has improved. He states he anticipates diarrheal will worsen back on antibiotics. Related Data Home Medications Medication Instructions Recorded Confirmed allopurinol 300 mg tablet 300 mg PO HS 03/23/22 05/11/22 atenolol 50 mg tablet 50 mg PO HS 03/23/22 05/11/22 brimonidine 0.2 %-timolol 0.5 % 1 drp ophthalmic (eye) BID 03/23/22 05/11/22 eye drops hydrochlorothiazide 25 mg tablet 25 mg PO HS 03/23/22 05/11/22 latanoprost 0.005 % eye drops 1 drp ophthalmic (eye) HS 03/23/22 05/11/22 lisinopril 40 mg tablet 40 mg PO HS 03/23/22 05/11/22 melatonin 10 mg capsule 40 mg PO HS PRN 03/23/22 05/11/22 sumatriptan succinate 50 mg tablet See Rx Instructions PO .COMPLEX 03/23/22 05/11/22 (Imitrex) hydroxyzine pamoate 50 mg capsule 50 mg PO 3XD 05/11/22 05/11/22 sertraline 50 mg tablet 50 mg PO DAILY 05/11/22 05/11/22 Previous Rx's Medication Instructions Recorded Lactobacillus acidophilus 0.5 mg 1 mg PO TIDWM #60 tabs 03/26/22 (100 million cell) tablet Allergies Allergy/AdvReac Type Severity Reaction Status Date / Time No Known Drug Allergies Allergy Verified 05/11/22 16:53 Review of Systems Status of ROS: Reports: 6 or more systems reviewed and unremarkable except as noted in History and below [facility] Medical History Alcohol dependence, daily use Chronic insomnia Glaucoma Gout History of Clostridium difficile colitis History of sepsis History of upper gastrointestinal hemorrhage Hypertension Migraines Neuropathy Surgical History Status post appendectomy Family History Mother VTE (venous thromboembolism) 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 Chews tobacco daily. 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 Vielka is emergency contact Designates full code status Highest level of school completed/degree received: high school graduate Smoking Status: Never smoker Do you use any of these nicotine containing products: Smokeless Tobacco Second hand tobacco smoke exposure: No How often do you have a drink containing alcohol: 4 or more times a week Alcohol type: beer and wine How many standard drinks containing alcohol do you have on a typical day: 1 or 2 How often do you have six or more drinks on one occasion: Weekly AUDIT-C Alcohol total score: 7 Non-prescribed substance use: denies use Caffeine: No service: No Exam Const: Vital Signs, click to edit/add: Vital Signs - 24 hr 05/11/22 16:53 05/11/22 18:16 Temperature 98.7 F Pulse Rate [Pulse Oximeter] 69 Respiratory Rate 24 Blood Pressure [Ri ght Upper Arm] 128/81 Pulse Oximetry 99 99 Oxygen Delivery Me thod Room Air Documenting provider has reviewed patient's vital signs: yes Common normals: no apparent distress, average body habitus, oriented x3, no limitations and alert Other: Under blanket, seems mildly ill, complains of being chilled. HENMT: Common normals: normocephalic, head/scalp atraumatic and hearing grossly normal bilaterally Head and scalp: normocephalic and atraumatic Eye: Common normals: PERRL, EOMs intact bilaterally and conjunctivae normal Conjunctiva: conjunctiva(e) normal Pupil: PERRL Neck & C-Spine: Common normals: full ROM, no lymphadenopathy, supple, no meningeal signs, no JVD and thyroid normal Thyroid: thyroid normal Resp: Common normals: normal respiratory effort, no retractions, no use of accessory muscles and clear to auscultation bilaterally Auscultation: clear to auscultation bilaterally Cardio: Common normals: no JVD, regular rate, regular rhythm, S1 normal heart sound, S2 normal heart sound, no gallops, no clicks and no murmurs Rate: regular rate Rhythm: regular rhythm Heart sounds: S1 normal and S2 normal GI: Common normals: Normal to inspection, nondistended, normoactive bowel sounds present, soft to palpation, non-tender, no hepatosplenomegaly and no masses Palpation: soft and no hepatosplenomegaly Extremity: Other: Second toe is bandage. The foot itself has erythema extending beyond the midfoot, does seem like it is on the plantar surface as well. I did visualize his foot when I saw him when he was in the ER last, this is a definite change. Neuro: Common normals: oriented x3 Sensorium/orientation: alert Meningeal signs: no meningeal signs Course Course Hospital Course: Patient has obvious cellulitis of this foot now. Will establish an IV, obtain labs including blood cultures. Will obtain x-rays of his foot, may need an MRI to rule out recurrent osteomyelitis but MRI capability is not possible at this time. He is dot chewing any changes concerning of sepsis at this time but will be watched closely. He did take an oral dose of Levaquin about 2 hours ago. Reevaluation(s) Reevaluation #1: Reviewed with patient that his x-ray is not clinically showing any osteomyelitis but he understands limitation of this as a screening film. Labs are actually looking stable but looking back at his procalcitonin, even with osteomyelitis does not appear that it was elevated. His foot is definitely erythematous, looks like it is maybe expanded the even some while here. I would favor observing him in the hospital, will talk to the hospitalist. Patient is in agreement to stay in the hospital if this is what is recommended. Time: 18:50 Consultations Consultation #1: Spoke with and she and I reviewed his situation. To me his foot almost looks like the erythema is already extended a bit while here. She was able to pull up his tissue pathology culture. There is a culture pending from yesterday with a Gram stain showing Gram-positive cocci. We discussed treatment in she would like to initiate cefepime and vancomycin which I have ordered. Time: 18:58 Vital Signs Vital signs: Initial Vital Signs Temperature 98.7 F 05/11/22 16:53 Temperature Source Temporal Artery Scan 05/11/22 16:53 Pulse Rate 69 05/11/22 16:53 Pulse Rhythm 05/11/22 16:53 Pulse Strength 3+ Normal 05/11/22 16:53 Respiratory Rate 24 05/11/22 16:53 Blood Pressure 128/81 05/11/22 16:53 Blood Pressure Mean 96 05/11/22 16:53 Blood Pressure Position Sitting 05/11/22 16:53 Pulse Oximetry 99 05/11/22 16:53 Oxygen Delivery Method 05/11/22 16:53 Vital Signs Temperature 98.7 F 05/11/22 16:53 Pulse Rate 69 05/11/22 16:53 Respiratory Rate 24 05/11/22 16:53 Blood Pressure 128/81 05/11/22 16:53 Pulse Oximetry 99 05/11/22 16:53 Oxygen Delivery Method 05/11/22 16:53 Temperature 98.7 F 05/11/22 16:53 Pulse Rate 69 05/11/22 16:53 Respiratory Rate 24 05/11/22 16:53 Blood Pressure 128/81 05/11/22 16:53 Pulse Oximetry 99 05/11/22 18:16 Oxygen Delivery Method 05/11/22 16:53 Medical Decision Making Lab Data Lab results reviewed: Yes I reviewed the patient's lab results Labs: Lab Results 0305/11/22 05/11/22 Range/Units 17:30 17:30 17:30 WBC 8.25 (4.50-11.00) K/uL RBC 4.65 (4.30-5.90) m/uL Hgb 15.6 (13.5-17.5) gm/dL Hct 44.2 (37.0-53.0) % MCV 95 (80-100) fL MCH 34 (26-34) pg MCHC 35 (32-36) gm/dL RDW Coeff of Juni 11.7 (11.5-15.5) % Plt Count 202 (140-440) K/uL Neut % (Auto) 72.3 H (42.0-72.0) % Lymph % (Auto) 19.9 L (20-44) % Trego % (Auto) 7.0 (0.0-11.0) % Eos % (Auto) 0.5 (0.0-7.0) % Baso % (Auto) 0.2 (0.0-3.0) % Neut # (Auto) 6.00 (1.7-7.0) K/uL Lymph # (Auto) 1.60 (0.90-2.90) K/uL Trego # (Auto) 0.60 (0.00-0.90) K/UL Eos # (Auto) 0.04 (0.00-0.50) K/uL Baso # (Auto) 0.02 (0.00-0.30) K/uL ESR 7 (2-15) mm/hr Sodium 138 (135-149) mmol/L Potassium 3.5 L (3.6-5.1) mmol/L Chloride 106 (96-114) mmol/L Carbon Dioxide 20 (20-32) mmol/L BUN 11 (5-24) mg/dL Creatinine 0.7 (0.5-1.5) mg/dL Estimated Creat Clear 169.71 Estimated GFR 117 ml/min Glucose 99 (60-115) mg/dL Lactate (0.5-1.9) mmol/L Calcium 10.2 (8.4-10.6) mg/dL Total Bilirubin 1.9 H (0.1-1.5) mg/dL AST 33 (12-35) U/L ALT 42 (4-50) U/L Alkaline Phosphatase 96 (40-150) U/L C-Reactive Protein 1.8 H (0.5-1.0) mg/dL Total Protein 8.9 H (6.0-8.3) g/dL Albumin 5.0 (3.3-5.0) g/dL Procalcitonin 0.06 (<0.50) ng/mL SARS-CoV-2 (PCR) (Negative) 05/11/22 05/11/22 Range/Units 17:30 17:30 WBC (4.50-11.00) K/uL RBC (4.30-5.90) m/uL Hgb (13.5-17.5) gm/dL Hct (37.0-53.0) % MCV (80-100) fL MCH (26-34) pg MCHC (32-36) gm/dL RDW Coeff of Juni (11.5-15.5) % Plt Count (140-440) K/uL Neut % (Auto) (42.0-72.0) % Lymph % (Auto) (20-44) % Trego % (Auto) (0.0-11.0) % Eos % (Auto) (0.0-7.0) % Baso % (Auto) (0.0-3.0) % Neut # (Auto) (1.7-7.0) K/uL Lymph # (Auto) (0.90-2.90) K/uL Trego # (Auto) (0.00-0.90) K/UL Eos # (Auto) (0.00-0.50) K/uL Baso # (Auto) (0.00-0.30) K/uL ESR (2-15) mm/hr Sodium (135-149) mmol/L Potassium (3.6-5.1) mmol/L Chloride (96-114) mmol/L Carbon Dioxide (20-32) mmol/L BUN (5-24) mg/dL Creatinine (0.5-1.5) mg/dL Estimated Creat Clear Estimated GFR ml/min Glucose (60-115) mg/dL Lactate 1.5 (0.5-1.9) mmol/L Calcium (8.4-10.6) mg/dL Total Bilirubin (0.1-1.5) mg/dL AST (12-35) U/L ALT (4-50) U/L Alkaline Phosphatase (40-150) U/L C-Reactive Protein (0.5-1.0) mg/dL Total Protein (6.0-8.3) g/dL Albumin (3.3-5.0) g/dL Procalcitonin (<0.50) ng/mL SARS-CoV-2 (PCR) Negative SARS-CoV-2 (Negative) Imaging Data X-ray right foot: Attestation: I have reviewed the pertinent imaging results. My impression: I do not see any evidence any osteomyelitis on my preliminary review, await Radiology read. Radiologist's impression: Patient: ELLYN LEÓN Facility:?[facility] Patient ID:?[id number] Site Patient ID:?[id number]. Site :?[id number] Study:?XRay Extremity Right FOOT 3V-05/11/2022 5:45:08 PM Ordering Physician:Jaylene Zavaleta Final Report: Indication: Recent osteomyelitis, recurrent infection. Technique: Right foot 3 views. Comparison: Right foot MRI 03/23/2022. Findings: Bones: Interval amputation of the 2nd toe distal phalanx. No erosive changes. No aggressive osseous lesion. No acute fracture. Normal alignment. Joint spaces: Unremarkable. Soft tissues: Soft tissue swelling about the distal aspect of the 2nd toe. No discrete soft tissue gas. Impression: Interval amputation of the 2nd toe distal phalanx. Soft tissue swelling about the distal 2nd toe without radiographic evidence for osteomyelitis involving the middle phalanx. No acute fracture. Dictated by Amado Gooden MD @ 05/11/2022 6:13:32 PM (Electronic Signature) Critical Care Time Critical Care Time Critical Care Time: No Discharge Plan Discharge Clinical Impression: Cellulitis, Neuropathy Patient Disposition: Admitted As Inpatient Condition: Unchanged
--- NOTE | 2022-05-11 17:27 | CRLHL7_ITS ---
For Patients: As a result of the Cures Act, medical imaging exams and procedure reports are released immediately into your electronic medical record. You may view this report before your referring provider. If you have questions, please contact your health care provider. Indication: Recent osteomyelitis, recurrent infection. Technique: Right foot 3 views. Comparison: Right foot MRI 03/23/2022. Findings: Bones: Interval amputation of the 2nd toe distal phalanx. No erosive changes. No aggressive osseous lesion. No acute fracture. Normal alignment. Joint spaces: Unremarkable. Soft tissues: Soft tissue swelling about the distal aspect of the 2nd toe. No discrete soft tissue gas. Impression: Interval amputation of the 2nd toe distal phalanx. Soft tissue swelling about the distal 2nd toe without radiographic evidence for osteomyelitis involving the middle phalanx. No acute fracture. Dictated by Amado Gooden MD @ 05/11/2022 6:13:32 PM (Electronically Signed)
[2022-05-11 17:38] LABS: Lactate* 1.5 mmol/L (0.5-1.9)
[2022-05-11 17:40] LABS: Basophils Absolute Auto 0.02 K/uL (0.00-0.30); Basophils Percent Auto 0.2 % (0.0-3.0); Eosinophils Absolute Auto 0.04 K/uL (0.00-0.50); Eosinophils Percent Auto 0.5 % (0.0-7.0); Hematocrit 44.2 % (37.0-53.0); Hemoglobin* 15.6 gm/dL (13.5-17.5); Immature Granulocytes Abs Auto 0.01 K/uL (0.00-0.30); Immature Granulocytes Pct Auto 0.1 %; Lymphocytes Percent Auto 19.9 % (20-44); Mean Corpuscular HGB Conc 35 gm/dL (32-36); Mean Corpuscular Hemoglobin 34 pg (26-34); Mean Corpuscular Volume 95 fL (80-100); Neutrophils Percent Auto 72.3 % (42.0-72.0); Platelet Count* 202 K/uL (140-440); RDW Coefficient of Variation % 11.7 % (11.5-15.5); Red Blood Count 4.65 m/uL (4.30-5.90); White Blood Count* 8.25 K/uL (4.50-11.00)
[2022-05-11 17:45] LABS: Slide Review Reflex No
[2022-05-11 17:59] LABS: Chloride* 106 mmol/L (96-114); Potassium* 3.5 mmol/L (3.6-5.1); Sodium* 138 mmol/L (135-149)
[2022-05-11 18:01] LABS: Bilirubin Total* 1.9 mg/dL (0.1-1.5); Creatinine* 0.7 mg/dL (0.5-1.5); Est. Creatinine Clearance* 169.71; Estimated Glomerular Filt Rate 117 ml/min
[2022-05-11 18:02] LABS: Alanine Aminotransferase* 42 U/L (4-50); Alkaline Phosphatase* 96 U/L (40-150); Aspartate Amino Transferase* 33 U/L (12-35); Blood Urea Nitrogen* 11 mg/dL (5-24); Calcium* 10.2 mg/dL (8.4-10.6); Carbon Dioxide* 20 mmol/L (20-32); Glucose* 99 mg/dL (60-115); Total Protein* 8.9 g/dL (6.0-8.3)
[2022-05-11 18:05] LABS: C Reactive Protein* 1.8 mg/dL (0.5-1.0)
[2022-05-11 18:14] LABS: SARS PCR* Negative SARS-CoV-2 (Negative)
[2022-05-11 18:16] VITALS: O2SAT 99
[2022-05-11 18:19] LABS: Procalcitonin* 0.06 ng/mL (<0.50)
[2022-05-11 18:47] LABS: Erythrocyte SedimentationRate* 7 mm/hr (2-15)
[2022-05-11] MEDS: CEFEPIME HCL 2 GM in 0.9 % SODIUM CHLORIDE Mini-bag 100 ML IVPB (19:28)
[2022-05-11 20:17] VITALS: BP 136/94; PULSE 60; RESP 16; O2SAT 98
[2022-05-11 20:52] VITALS: BP 127/70; PULSE 53; RESP 20; TEMP 36.9; O2SAT 97; BMI 25.7
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
[2022-05-11] MEDS: lisinopriL 20 MG TABLET 40 MG PO (21:54)
[2022-05-11] MEDS: atenoloL 50 MG TABLET PO (21:55)
[2022-05-11] MEDS: LATANOPROST 0.005% OPHTH 1 DROP EYE-BOTH (21:55)
[2022-05-11] MEDS: allopurinoL 300 MG TABLET PO (21:55)
[2022-05-11 22:00] VITALS: BP 125/79; PULSE 63; RESP 20; TEMP 37.2; O2SAT 97
[2022-05-11] MEDS: TRAZODONE HCL 50 MG TABLET 150 MG PO (22:24)
[2022-05-11] MEDS: MELATONIN 3 MG TABLET 6 MG PO (22:24)
[2022-05-11] MEDS: KETOROLAC 30 MG/ML inj IVP (22:25)
[2022-05-11] MEDS: LORazepam 1 MG TABLET PO (22:25)
[2022-05-11] MEDS: SODIUM CHLORIDE 0.9 % (FLUSH) 10 ML SYRINGE 5 ML IVF (22:25)
[2022-05-11 23:00] VITALS: RESP 20; O2SAT 97
[2022-05-12] VITALS (7 sets, daily range): BP systolic 95–122; BP diastolic 49–67; PULSE 40–44; RESP 16–20; TEMP 36.5–36.9; O2SAT 95–100
[2022-05-12 00:05] LABS: C.Difficile Negative (Negative); CDIFFEPI 027 PRESUMPTIVE NEGATIVE (Negative)
[2022-05-12] MEDS: 0.9 % SODIUM CHLORIDE 250 ml IV (03:15)
[2022-05-12] MEDS: CEFEPIME HCL 2 GM in 0.9 % SODIUM CHLORIDE Mini-bag 100 ML IVPB ×3 (03:15→18:31)
--- NOTE | 2022-05-12 06:10 | PC.NURSE ---
Patient to the unit at 2035. Pleasant and cooperative. Toradol administered for pain in the R. foot. Independent in room. Afebrile but chills visible. Denies N/V. Dressing to 2nd toe on R. foot changed per patient request.
--- NOTE | 2022-05-12 06:46 | PM.PODCN1 ---
[facility] - Podiatry Data of Consult Date Seen: 05/12/22 Patient: Cindy Patient Consult date: 05/12/22 Requesting physician: Kassie Dimas MD Primary care provider: Leonid Haro MD Consult Narrative Reason for consult: Toe infection Narrative: Siva Baxter is a 42 year old male seen bedside for 2nd toe infection. Patient is least seen in clinic on Monday and debridement of necrotic tissue from the toe performed. He was unable to fill antibiotics and the foot worsened. He presented to the emergency department last night and was admitted for IV antibiotics. He states overall is feeling well today. cc:: CC: Kassie Dimas MD [facility] Medical History Alcohol dependence, daily use Chronic insomnia Glaucoma Gout History of Clostridium difficile colitis History of sepsis History of upper gastrointestinal hemorrhage Hypertension Migraines Neuropathy Surgical History Status post appendectomy Family History Mother VTE (venous thromboembolism) 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 Chews tobacco daily. 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 Vielka is emergency contact Designates full code status Highest level of school completed/degree received: high school graduate Smoking Status: Never smoker Do you use any of these nicotine containing products: Smokeless Tobacco Second hand tobacco smoke exposure: No How often do you have a drink containing alcohol: 4 or more times a week Alcohol type: beer and wine How many standard drinks containing alcohol do you have on a typical day: 3 or 4 How often do you have six or more drinks on one occasion: Weekly AUDIT-C Alcohol total score: 8 Non-prescribed substance use: denies use Caffeine: No service: No Exam Narrative: Exam Narrative: General: No apparent distress. Resting comfortably. Vascular: Palpable pedal pulses. Neuro: Insensate to light touch. Musculoskeletal: Muscle strength 5/5 all quadrants. Derm: There is erythema of the 2nd toe extending past the MPJ onto the dorsal foot. This also extends laterally to the ankle. Erythema in the toe does seem to be slightly improved from clinic but the extension onto the foot is new. Open wound distal tip of the toe with no new necrotic tissue. There is healthy granular tissue to the Wound surroundings. There is no purulence or significant drainage. Const: Vital Signs, click to edit/add: Vital Signs - 24 hr 05/11/22 16:53 05/11/22 18:16 05/11/22 20:17 Temperature 98.7 F Pulse Rate [Left P ulse Oximeter] Pulse Rate [Pulse Oximeter] 69 60 Respiratory Rate 24 16 Blood Pressure [Le ft Arm] Blood Pressure [Ri ght Upper Arm] 128/81 136/94 H Pulse Oximetry 99 99 98 Oxygen Delivery Me thod Room Air Room Air 05/11/22 20:52 05/11/22 22:00 05/11/22 23:00 Temperature 98.4 F 98.9 F Pulse Rate [Left P ulse Oximeter] 53 L 63 Pulse Rate [Pulse Oximeter] Respiratory Rate 20 20 20 Blood Pressure [Le ft Arm] 127/70 125/79 Blood Pressure [Ri ght Upper Arm] Pulse Oximetry 97 97 97 Oxygen Delivery Me thod Room Air Room Air Room Air 05/12/22 03:10 Temperature 97.7 F Pulse Rate [Left P ulse Oximeter] 43 L Pulse Rate [Pulse Oximeter] Respiratory Rate 20 Blood Pressure [Le ft Arm] 107/49 L Blood Pressure [Ri ght Upper Arm] Pulse Oximetry 98 Oxygen Delivery Me thod Room Air Documenting provider has reviewed patient's vital signs: yes Assessment and Plan Assessment and plan (1) Cellulitis: Problem comment: Status: Acute Assessment and Plan: Assessment: Open wound right 2nd toe with cellulitis Plan: Wound culture taken on Monday is growing Gram-positive cocci. Previous history of methicillin sensitive Staph aureus. Recommend continued IV antibiotics while waiting for sensitivities. I do not feel additional surgical intervention is necessary at this time. We will attempt to let wound heal by secondary intention. VASHE moistened gauze wet-to-dry dressing twice daily. Nursing needs to make sure that packing gets to the bottom of the wound. Nail Debridement Qualifies If: Qualifiers If:: A patient qualifies for nail debridement if they have: 1 class A finding (Q7) 2 class B findings (Q8) OR 1 class B & 2 class C findings in addition to a primary condition (Q9)
[2022-05-12] MEDS: POTASSIUM BICARB 25 MEQ EFFERVESCENT TAB PO (08:32)
[2022-05-12] MEDS: SERTRALINE 50 MG TABLET PO (08:33)
[2022-05-12] MEDS: LACTOBACILLUS ACIDOPHILUS 1 TABLET 1 TAB PO (08:33)
[2022-05-12] MEDS: SODIUM CHLORIDE 0.9 % (FLUSH) 10 ML SYRINGE 5 ML IVF (09:48)
[2022-05-12] MEDS: LACTOBACILLUS ACIDOPHILUS 1 TABLET 2 TAB PO ×3 (09:51→18:30)
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
[2022-05-12] MEDS: ACETAMINOPHEN 325 MG TABLET 975 MG PO (12:57)
--- NOTE | 2022-05-12 15:00 | PC.NURSE ---
Nursing Care Hours: [id number] Pt this shift calm and cooperative. some fidgeting noted and flushed face. Pt denies SOB, chest pain, but states has a slight headache. Pain in R foot 3-4, treated per eMAR. Redness in R foot within marked lines, has not grown. Up independently in room, voiding and 1 BM. Refused breakfast and ate whole lunch. IV patent
--- NOTE | 2022-05-12 19:02 | PC.NURSE ---
Pt UAL in room. States his toe has a dull achy sensation. Pt pleasant and cooperative with nsg cares. Received po Lactobacillus and IV ATB which is currently infusing. Report to oncoming shift RN.
[2022-05-12] MEDS: allopurinoL 300 MG TABLET PO (21:30)
[2022-05-12] MEDS: lisinopriL 20 MG TABLET 40 MG PO (21:30)
[2022-05-13 00:09] VITALS: BP 100/57; PULSE 44; RESP 16; TEMP 36.7; O2SAT 95
[2022-05-13] MEDS: MELATONIN 3 MG TABLET 9 MG PO (00:17)
[2022-05-13] MEDS: TRAZODONE HCL 50 MG TABLET 150 MG PO (00:17)
[2022-05-13] MEDS: LORazepam 1 MG TABLET PO (00:17)
[2022-05-13] MEDS: hydrOXYzine pamoate 25 MG CAPSULE 50 MG PO (00:18)
[2022-05-13] MEDS: CEFEPIME HCL 2 GM in 0.9 % SODIUM CHLORIDE Mini-bag 100 ML IVPB (03:17)
[2022-05-13] MEDS: 0.9 % SODIUM CHLORIDE 250 ml IV (03:17)
[2022-05-13] MEDS: SODIUM CHLORIDE 0.9 % (FLUSH) 10 ML SYRINGE 5 ML IVF ×2 (03:18→08:30)
[2022-05-13 03:20] VITALS: BP 99/55; PULSE 37; RESP 18; TEMP 36.7; O2SAT 96
--- NOTE | 2022-05-13 06:07 | PC.NURSE ---
[id number]: Patient pleasant and cooperative with cares. Consistent but tolerable pain reported in R. foot. Dressing to 2nd toe on R. foot changed and tolerated well. Afebrile. Erythema receding within previously drawn line. HR Aydin (40's) all shift. MD aware. Denies dizziness, lightheadedness, N/V. Diarrhea continues, C-diff neg.
[2022-05-13 06:42] LABS: Basophils Absolute Auto 0.02 K/uL (0.00-0.30); Basophils Percent Auto 0.3 % (0.0-3.0); Eosinophils Absolute Auto 0.15 K/uL (0.00-0.50); Eosinophils Percent Auto 2.6 % (0.0-7.0); Hematocrit 37.5 % (37.0-53.0); Immature Granulocytes Abs Auto 0.01 K/uL (0.00-0.30); Immature Granulocytes Pct Auto 0.2 %; Lymphocytes Absolute Auto 1.84 K/uL (0.90-2.90); Lymphocytes Percent Auto 31.6 % (20-44); Mean Corpuscular HGB Conc 35 gm/dL (32-36); Mean Corpuscular Hemoglobin 34 pg (26-34); Mean Corpuscular Volume 97 fL (80-100); Monocytes Percent Auto 8.2 % (0.0-11.0); Neutrophils Absolute Auto 3.33 K/uL (1.7-7.0); Neutrophils Percent Auto 57.1 % (42.0-72.0); Platelet Count* 153 K/uL (140-440); RDW Coefficient of Variation % 11.7 % (11.5-15.5); Red Blood Count 3.87 m/uL (4.30-5.90); White Blood Count* 5.83 K/uL (4.50-11.00)
[2022-05-13 06:50] LABS: Slide Review Reflex No
[2022-05-13 07:08] LABS: Albumin* 3.6 g/dL (3.3-5.0); Chloride* 113 mmol/L (96-114); Sodium* 139 mmol/L (135-149)
[2022-05-13 07:09] LABS: Potassium* 3.9 mmol/L (3.6-5.1)
[2022-05-13 07:11] LABS: Carbon Dioxide* 19 mmol/L (20-32); Creatinine* 0.8 mg/dL (0.5-1.5); Estimated Glomerular Filt Rate 112 ml/min
[2022-05-13 07:12] LABS: Alanine Aminotransferase* 35 U/L (4-50); Alkaline Phosphatase* 76 U/L (40-150); Aspartate Amino Transferase* 29 U/L (12-35); Bilirubin Total* 0.9 mg/dL (0.1-1.5); Blood Urea Nitrogen* 13 mg/dL (5-24); Calcium* 9.1 mg/dL (8.4-10.6); Glucose* 93 mg/dL (60-115); Magnesium* 1.9 mg/dL (1.5-2.6); Total Protein* 6.7 g/dL (6.0-8.3)
[2022-05-13 07:14] LABS: C Reactive Protein* 2.5 mg/dL (0.5-1.0)
[2022-05-13 07:50] VITALS: BP 111/74; PULSE 41; RESP 18; TEMP 36.9; O2SAT 98
[2022-05-13] MEDS: LACTOBACILLUS ACIDOPHILUS 1 TABLET 2 TAB PO ×2 (07:55→12:21)
--- NOTE | 2022-05-13 08:04 | P.PODPN_ITS ---
Podiatry-PN: Subj Subjective Date Seen: 05/13/22 Interval history: Patient seen bedside this a.m. he is doing well without complaint. Denies pain. Exam Narrative: Exam Narrative: General: No distress Vascular: Palpable pedal pulses. Neuro: Insensate light touch. Musculoskeletal: muscle strength 5 out of of 5 all quadrants. Derm: Significantly improved erythema and edema to the 2nd toe and dorsal foot right. Dorsal foot erythema is nearly resolved and there is only a mild amount of erythema ending at the PIPJ. Open wound with increased granulation tissue. No purulence. No new areas of necrosis. Wound culture: Staph aureus - sensitivities pending Assessment: Resolving cellulitis with open wound 2nd toe right foot Plan: Wound packing exchange today with VASHE moistened wet-to-dry. He will need b.i.d. VASHE moistened wet to dry dressing with 2x2. Probable discharge today on doxycycline. He will follow-up with me in clinic Monday of Jorden suther[place] Const: Vital Signs, click to edit/add: Vital Signs - 24 hr 05/12/22 11:00 05/12/22 15:45 05/12/22 15:45 Temperature 97.9 F 98.2 F Pulse Rate [Left A pical] 41 L Pulse Rate [Left P ulse Oximeter] 40 L 41 L Respiratory Rate 16 18 Blood Pressure [Le ft Arm] 111/65 119/67 Pulse Oximetry 100 98 98 Oxygen Delivery Me thod Room Air Room Air Room Air 05/12/22 19:57 05/12/22 22:13 05/12/22 22:16 Temperature 98.5 F Pulse Rate [Left A pical] 41 L 41 L Pulse Rate [Left P ulse Oximeter] Respiratory Rate 18 18 Blood Pressure [Le ft Arm] 95/58 L Pulse Oximetry 95 95 Oxygen Delivery Al thod Room Air Room Air 05/13/22 00:09 05/13/22 03:20 Temperature 98.1 F 98.1 F Pulse Rate [Left A pical] 44 L Pulse Rate [Left P ulse Oximeter] 37 L Respiratory Rate 16 18 Blood Pressure [Le ft Arm] 100/57 L 99/55 L Pulse Oximetry 95 96 Oxygen Delivery Al thod Room Air Room Air Podiatry-PN: Obj Labs Labs: Laboratory Results - last 24 hr 05/13/22 06:23 WBC 5.83 RBC 3.87 L Hgb 13.0 L Hct 37.5 MCV 97 MCH 34 MCHC 35 RDW Coeff of Juni 11.7 Plt Count 153 Neut % (Auto) 57.1 Lymph % (Auto) 31.6 [place] % (Auto) 8.2 Eos % (Auto) 2.6 Baso % (Auto) 0.3 Neut # (Auto) 3.33 Lymph # (Auto) 1.84 [place] # (Auto) 0.50 Eos # (Auto) 0.15 Baso # (Auto) 0.02 Sodium 139 Potassium 3.9 Chloride 113 Carbon Dioxide 19 L BUN 13 Creatinine 0.8 Estimated Creat Clear 148.50 Estimated GFR 112 Glucose 93 Calcium 9.1 Magnesium 1.9 Total Bilirubin 0.9 AST 29 ALT 35 Alkaline Phosphatase 76 C-Reactive Protein 2.5 H Total Protein 6.7 Albumin 3.6
[2022-05-13] MEDS: SERTRALINE 50 MG TABLET PO (08:30)
[2022-05-13 11:00] VITALS: BP 135/78; PULSE 38; RESP 18; TEMP 36.6; O2SAT 98
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
[2022-05-13 12:51] VITALS: RESP 18; TEMP 36.9
--- NOTE | 2022-05-13 14:05 | PC.NURSE ---
Pt calm, cooperative and talkative during shift. Pt is Independent with ADL's. Pt was bradycardic and an EKG was obtained and given to Hospitalist. Pt's wound care was completed by Dr. Ceballos while RN in room. Discharge instructions gone over with Pt.Pt to discharge home with .
== END 2022-05-13 13:17 | disposition home or self-care (01) | DRG 603 ==
LOC: ED 19:16 → MEDSURG 20:31
PROVIDERS: Family Medicine; Admitting Provider Family Medicine; Emergency Provider Family Medicine; PCP Family Medicine; Visit Provider Family Medicine
DX: L03.115 Cellulitis of right lower limb (principal); K52.1 Toxic gastroenteritis and colitis; T36.8X5A Adverse effect of other systemic antibiotics, initial encounter; G62.9 Polyneuropathy, unspecified; L97.511 Non-pressure chronic ulcer of other part of right foot limited to breakdown of skin; R63.4 Abnormal weight loss; R00.1 Bradycardia, unspecified; F10.21 Alcohol dependence, in remission; I10 Essential (primary) hypertension; Z89.421 Acquired absence of other right toe(s); F17.220 Nicotine dependence, chewing tobacco, uncomplicated; M10.9 Gout, unspecified; H40.9 Unspecified glaucoma; F51.04 Psychophysiologic insomnia
CPT/HCPCS: 36415; 73630; 80053; 83605; 83735; 84145; 85025; 85651; 86140; 87040; 87493; 87635; 94761; 99284; A9270; J0692; J1885; J3370; J7050; J7120

== ENCOUNTER 2022-11-08 10:22 | Outpatient (CLI) | payer OTHER, SELFPAY ==
[2022-11-08 11:58] VITALS: BP 122/60; PULSE 84; RESP 18
--- NOTE | 2022-11-08 14:40 | W.PM.STED ---
Stress Test Note Date Date of test: 11/08/22 Providers Primary care provider: Leonid Haro Stress test physician: Ricardo Santos Stress Test Note Stress test ordered: Exercise Stress Test Indication for test: bradycardia Stress test medicine: None Results discussion: Patient is a very nice gentleman who presents here for an exercise stress test, discussion the risks benefits side effects are to take any like to proceed pretest EKG shows normal sinus rhythm, with sinus bradycardia with a ventricular rate of 41 and a blood pressure 100/60. Cardiac stress test medical history form is reviewed. Standard David protocol is used for duration of 9 minutes 35 seconds, and achieved a metabolic would 11.1 Mets. Test is deemed valid, as he obtained his target predicted heart rate, during this test there is no chest pain, no other subjective anginal symptoms. Test is terminated because of fulfillment of protocol and leg discomfort. Review of the tracing showed no ST wave evidence of or ischemic changes, there is occasional PVCs. Impression: Negative electrographic stress test Follow up suggested: Patient will be discharged home, is test is negative, conditioning was felt to be moderate, follow-up with primary care is suggested.
== END 2022-11-08 12:00 | disposition home or self-care (01) ==
LOC: STRESS 10:26
PROVIDERS: PCP Family Medicine; Visit Provider Family Medicine
DX: R00.1 Bradycardia, unspecified (principal)
CPT/HCPCS: 93016; 93017

== ENCOUNTER 2022-12-02 07:36 | Outpatient (CLI) | payer OTHER, SELFPAY | END 2022-12-02 07:37 | disposition home or self-care (01) | LOC: RAD 07:36 | PROVIDERS: PCP Family Medicine; Visit Provider Internal Medicine | DX: R00.1 Bradycardia, unspecified (principal) | CPT/HCPCS: 93306 ==

== ENCOUNTER 2024-02-27 11:17 | Inpatient (IN) | payer OTHER, SELFPAY ==
[2024-02-27] VITALS (17 sets, daily range): BP systolic 95–144; BP diastolic 65–85; PULSE 67–100; RESP 16–28; TEMP 36.9–38.3; O2SAT 94–100; BMI 26.6; BMI 26.0
--- OUTSIDE RECORDS SUMMARY | 2024-02-27 11:19 | XMS_ITS | Clinical Summary ---
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 2.5 mL 8 Active brimonidine-timol ol (COMBIGAN) 0.2-0.5 % ophthalmic solution Place 1 Drop into both eyes 2 times daily. Active melatonin 10 mg tab Take 40 mg by mouth at bedtime if needed (Sleep). Active omeprazole 20 mg tablet Take 20 mg by mouth once daily. Active lisinopriL (PRINIVIL; ZESTRIL) 20 mg tabletIndications :Essential hypertension Take 1 Tablet (20 mg) by mouth once daily. 90 Tablet 3 4 Active sertraline (ZOLOFT) 50 mg tabletIndications :Anxiety Take 1 Tablet (50 mg) by mouth at bedtime. Wait until they call for this. 90 Tablet 3 4 Active SUMAtriptan (IMITREX) 50 mg tabletIndications :Migraine with aura and with status migrainosus, not intractable Take 1 Tablet (50 mg) by mouth every 2 hours if needed for Migraine. Max dose: 100mg per 24 hrs. 8 Tablet 3 4 Active hydrOXYzine HCL (ATARAX) 50 mg tabletIndications :Insomnia, idiopathic 1 tablet at bedtime take an additional tablet daily as needed for Anxiety. 110 Tablet 4 4 Active allopurinoL (ZYLOPRIM) 300 mg tabletIndications :Acute idiopathic gout, unspecified site Take 1 Tablet (300 mg) by mouth once daily. 90 Tablet 3 4 Active Active Problems Problem Noted Date Diagnosed Date Pacemaker 06/02/2023 Overview (06/02/2023): Single chamber pacemaker placed 02/28/23 Bradycardia 11/17/2022 Chronic insomnia 2022 2022 Neuropathy 2022 2022 Osteomyelitis 2022 2022 Acute blood loss anemia 09/04/2017 Glaucoma 05/26/2017 Depression, recurrent 03/18/2016 Allergic rhinitis due to allergen 03/18/2016 Migraine with aura and with status migrainosus, not intractable 03/25/2015 Acute idiopathic gout 12/07/2014 Kidney stones 12/16/2008 Essential hypertension 08/02/2006 Resolved Problems Problem Noted Date Diagnosed Date Resolved Date Orthostatic hypotension 09/04/201704/20 Vitamin D deficiency 01/23/2013 023 Overweight(278.02) 05/04/2006 3 Encounters Date Type Department Care Team Description 02/27/2024 10:45 AM BAR MANAGER Office Visit [facility] [address] [place] [address] Joi Leyva PA Toe Pain/problem (Right) 02/27/2024 Travel 02/27/2024 Nurse Triage [facility] [address] [place] [address] Leonid aHro MD Toe Pain/problem from Last 3 Months Immunizations Name Administration Dates Next Due COVID-19 vaccine ([facility] 30mcg/0.3mL) ILDA VALADEZ 02/02/2021,06/01/2020,05/11/2020 DTaP 08/31/1983 Hepatitis B (Adult) 11/10/1995,06/09/1995,1995 Polio Virus, Unspecified 08/31/1983 Td (Age >=7 Years) 12/27/2004 Td, Preservative Free (age >= 7 Years) 5 Tdap 04/27/2022 Family History Medical History Relation Name Comments Other Father committed suici de Other Maternal Grandfather gout Arthritis Mother Heart failure Mother Hypertension Mother Other Mother megacolon and r ecurrent urosepsis and CHF lead to at 68 Arthritis Sister 1 Hypertension Sister 1 Other Sister 2 adopted Relation Name Status Comments Father Maternal Grandfather Mother (Age 68) Sister 1 Sister 2 Social History Tobacco Use Types Packs/Day Years Used Date Smoking Tobacco: Former Smokeless Tobacco: Current Chew Tobacco Cessation:Ready to Q uit: No; Counseling Given: No Comments:Tin last 2-3 days Alcohol Use Standard Drinks/Week Comments Yes 5 (1 standard drink = 0.6 oz pur e alcohol) 1-2 beers a night on average [facility] Utilities Answer Date Recorded Do you have trouble paying f or utilities (for example, heat, electricity, water, phone)? Yes 06/02/2023 PHQ-2 Answer Date Recorded PHQ-2 TOTAL SCORE 0 06/02/2023 Social Connections Answer Date Recorded Do you often feel lonely or isolated from those around you? 0 06/02/2023 Alcohol Use Answer Date Recorded How often do you have a drink containing alcohol ? 3 06/02/2023 How many drinks containing a lcohol do you have on a typical day when you are drinking? 0 06/02/2023 How often do you have five or more drinks on one occasion? 0 06/02/2023 Financial Resource Strain Answer Date R ecorded Difficulty of Paying Living Expenses 3 06/02/2023 Difficulty of Paying Living Expenses Not on file 06/02/2023 Food Insecurity Answer Date Recorded Do you worry your food will run out before you are able to buy more? 1 06/02/2023 Transportation Needs Answer Date Record ed Does lack of transportation keep you from medica l appointments? 1 06/02/2023 Does lack of transportation keep you from work, meetings or getting things that you need? 1 06/02/2023 Housing Stability Answer Date Recorded What is your housing situation today? 1 06/02/2023 Interpersonal Safety Answer Date Record ed Are you being hit, kicked, p ushed or yelled at (see row info)? No 02/28/2023 Interpersonal Safety Abuse 12 - 18 Not on file 02/28/2023 Interpersonal Safety Ambulatory Vulnerability No t on file 02/28/2023 Sex and Gender Information Value Date Recorded Sex Assigned at Not on file Legal Sex Male 5:25 AM BAR MANAGER Gender Identity Not on file Sexual Orientation Not on file Obstetrics History Last Filed Vital Signs Vital Sign Reading Time Taken Comments Blood Pressure 151/100 02/27/2024 10:43 AM BAR MANAGER Pulse 124 02/27/2024 10:43 AM BAR MANAGER Temperature 38.4 C (101.1 F) 02/27/2024 10:43 AM BAR MANAGER Respiratory Rate 16 02/28/2023 11:0 0 AM BAR MANAGER Oxygen Saturation 97% 02/27/2024 10: 43 AM BAR MANAGER Inhaled Oxygen Concentration - - Weight 106.1 kg (233 lb 12.8 oz) 2024 10:43 AM BAR MANAGER Height 195.6 cm (6' 5) 09/04/2023 2:23 PM CDT Body Mass Index 27.72 09/04/2023 2:23 PM CDT Plan of Treatment Upcoming Encounters Date Type Department Care Team (Late st Contact Info) Description 04/30/2024 8:30 AM CDT Cardiac Device Check [facility] [place] [facility] [address] [place] [address] Health Maintenance Due Date Last Done Comments Pneumococcal series for age 6-49 (1 of 2 - PCV) 1997 Colonoscopy through age 75 05/03/2023 COVID-19 vaccine series ( season) 2023 02/02/2021, 06/01/2020, 05/11/2020 Influenza for age 9-49 10/22/2023 Depression screening for age 12+ 06/01/2024 06/02/2023, 11/16/2022, 08/19/2022, Additional history exists BMI (ht and wt on same day) for age 18+ 09/03/2024 09/04/2023, 02/27/2023, 11/03/2022, Additional history exists Lipids for age 45-75 04/28/2027 04/27/2022, 11/13/2019, 09/11/2017, Additional history exists Tetanus booster 04/27/2032 04/27/2022, 11/0 08/2004, 12/27/2004 HIV for age 15-65 Completed 04/27/2022 Hepatitis C screening for ag e 18-79 Completed 04/27/2022 Tdap Completed 04/27/2022 Procedures Procedure Name Priority Date/Time Associated Diagnosis Comments LC HIV-1/O/2, 4TH GENERATION Routine 04/27/2022 2:14 PM BAR MANAGER Screening for HIV (human immunodeficiency virus) LC HCV ANTIBODY RFX TO QUANT PCR Routine 04/27/2022 2:14 PM BAR MANAGER Need for hepatitis C screening test LC LIPID PANEL AND CHOL/HDL RATIO Routine 04/27/2022 2:14 PM BAR MANAGER Lipid screening from Last 3 Months or Most Recently Relevant to Health Maintenance Results * LC LIPID PANEL AND CHOL/HDL RATIO (04/27/2022 2:14 PM BAR MANAGER) Pathologist [facility] Cholesterol, Total 131 100 - 199 mg/dL 04/29/2022 10:11 AM [facility] Triglycerides 93 0 - 149 mg/dL 04/29/2022 10:11 AM [facility] HDL Cholesterol 65 >39 mg/dL 10:11 AM [facility] VLDL Cholesterol Erlin 17 5 - 40 mg/dL 04/29/2022 10:11 AM [facility] LDL Chol Calc ([facility]) 49 0 - 99 mg/dL 04/29/2022 10:11 AM [facility] T. Chol/HDL Ratio 2.0 0.0 - 5.0 ratio 04/29/2022 10:11 AM [facility] Comment: T. Chol/HDL Ratio Men Women 1/2 Avg.Risk 3.4 3.3 Avg.Risk 5.0 4.4 2X Avg.Risk 9.6 7.1 3X Avg.Risk 23.4 11.0 Blood BLOOD SPECIMEN / Unknown Butterfly / Unknown 04/27/2022 2:14 PM BAR MANAGER 04/27/2022 2:16 PM BAR MANAGER Narrative [facility] ([facility]) - 04/29/2022 10:11 AM BAR MANAGER Performed at: [address] [place] [id number] Dishtank Operator: Antonio Head MD, Phone: [phone] Leonid Haro MD SEND OUTS Final Resu lt Performing Organization Address [facility]/ZIP Co de Phone Number [facility] ([facility]) [address] [place] [address], [place] * LC HCV ANTIBODY RFX TO QUANT PCR (04/27/2022 2:14 PM BAR MANAGER) HCV Ab Non Reactive Non Reactive 04/29/2022 10:06 PM BAR MANAGER [facility] ([facility]) Blood BLOOD SPECIMEN / Unknown Butterfly / Unknown 04/27/2022 2:14 PM BAR MANAGER 04/27/2022 2:16 PM BAR MANAGER Narrative [facility] ([facility]) - 04/29/2022 10:06 PM BAR MANAGER Performed at: [address] [place] [id number] Dishtank Operator: Antonio Head MD, Phone: [phone] Leonid Haro MD LABORATORY Final Resu lt Performing Organization Address [facility]/ZIP Co de Phone Number [facility] ([facility]) [address] [place] [address], [place] * LC HIV-1/O/2, 4TH GENERATION (04/27/2022 2:14 PM BAR MANAGER) HIV Scr 4th Gen Non Reactive Non Reactive 04/29/2022 10:06 PM BAR MANAGER [facility] ([facility]) Comment: HIV Negative HIV-1/HIV-2 antibodies and HIV-1 p24 antigen were NOT detected. There is no laboratory evidence of HIV infection. Blood BLOOD SPECIMEN / Unknown Butterfly / Unknown 04/27/2022 2:14 PM BAR MANAGER 04/27/2022 2:16 PM BAR MANAGER Narrative [facility] - 04/29/2022 10:06 PM BAR MANAGER Performed at: [address] [place] [id number] Dishtank Operator: Antonio Head MD, Phone: [phone] us Leonid Haro MD LABORATORY Final Resu lt [facility] ([facility] [address] [place] [id number], from Last 3 Months or Most Recently Relevant to Health Maintenance Additional Health Concerns Infection Onset Date Last Indicated C diff History Comment:+ C diff test 09/04/17. Enteric Precautions not required on subsequent admissions provided: 1) >3 weeks since positive C diff test; 2) diarrhea resolved; and 3) patient has completed CDI antibiotics (excluding vanco taper). C diff testing not required on subsequent admissions unless patient is presenting with C diff symptoms 07/11/2022 07/11/2022 Insurance [facility] Advance Directives * Full Code (Latest Code Status on File) Date Activated Date Inactivated Comments 07/11/2022 9:18 AM 07/11/2022 3:46 PM Question Answer Comments Code Status Discussion: Reviewed Preferences * Full Code Date Activated Date Inactivated Comments 09/04/2017 9:35 AM 09/07/2017 4:16 PM Question Answer Comments Code Status Discussion: Discussed Care Teams Missile Control Pilot Relationship Specialty Start Date End Date Leonid Haro [place] [address] PCP - General Family Practice 03/15/13
--- NOTE | 2024-02-27 11:59 | CRLHL7_ITS ---
For Patients: As a result of the Cures Act, medical imaging exams and procedure reports are released immediately into your electronic medical record. You may view this report before your referring provider. If you have questions, please contact your health care provider. Indication: INFECTED R TOE. Technique: Right foot 3 views. Comparison: Foot radiographs dated 05/11/2022. 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 There is an osseous fragment along the dorsal aspect of the 3rd digit distal phalanx base, which could reflect an age-indeterminate fracture fragment. There also appears to be ventral subluxation of the 3rd digit distal phalanx. Joint spaces: Mild scattered degenerative changes. Soft tissues: Mild soft tissue gas along the distal aspect of the 3rd digit. No evident radiopaque foreign bodies. Dictated by Zhen Pinto MD @ 02/27/2024 12:30:02 PM (Electronically Signed)
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
--- NOTE | 2024-02-27 12:32 | CRLHL7_ITS ---
For Patients: As a result of the Cures Act, medical imaging exams and procedure reports are released immediately into your electronic medical record. You may view this report before your referring provider. If you have questions, please contact your health care provider. INDICATION: Fever. Cough. COMPARISON: 09/01/2017 TECHNIQUE: 1 view. FINDINGS: Medical Devices: Left-sided single lead cardiac conduction device. Lung Volumes: Adequate inspiration. No significant atelectasis. Lungs: Clear lungs. Pleura and Pleural spaces: No significant pleural effusion. No pneumothorax. Mediastinum: Normal cardiomediastinal silhouette. Bony Thorax and Soft Tissues: No significant incidental findings. IMPRESSION: No findings to explain the clinical history. Dictated by Tre Moreno MD @ 02/27/2024 12:48:49 PM (Electronically Signed)
[2024-02-27] MEDS: 0.9 % SODIUM CHLORIDE 1000 ml 1,000 ML 500 ML IV (12:37)
[2024-02-27] MEDS: ACETAMINOPHEN 500 MG TABLET 1000 MG PO (12:37)
--- OUTSIDE RECORDS SUMMARY | 2024-02-27 12:41 | XMS_ITS | Clinical Summary ---
Author Organization [facility] Address [place], [place] [address] Care Team Providers Care [employer] Roboticist Name Role Phone Leonid Haro MD Primary Care Provider [phone] Allergies No known active allergies Medications latanoprost [...] Department Care Team Description 02/27/2024 10:45 AM WELD INSPECTOR Office Visit [facility] [address] [place] [address] Joi Leyva PA Toe Pain/problem (Right) 02/27/2024 Travel 02/27/2024 Nurse Triage [facility] [address] [place] [address] Leonid Haro MD Toe Pain/problem from Last 3 Months Immunizations Name Administration Dates Next Due COVID-19 vaccine ([employer] NTDZZOM 30mcg/0.3mL) ILDA VALADEZ 02/02/2021,06/01/2020,05/11/2020 DTaP 08/31/1983 Hepatitis [...] on file Legal Sex Male 5:25 AM WELD INSPECTOR Gender Identity Not on file Sexual Orientation Not on file Obstetrics History Last Filed Vital Signs Vital Sign Reading Time Taken Comments Blood Pressure 151/100 02/27/2024 10:43 AM WELD INSPECTOR Pulse 124 02/27/2024 10:43 AM WELD INSPECTOR Temperature 38.4 C (101.1 F) 02/27/2024 10:43 AM WELD INSPECTOR Respiratory Rate 16 02/28/2023 11:0 0 AM WELD INSPECTOR Oxygen Saturation 97% 02/27/2024 10: 43 AM WELD INSPECTOR Inhaled Oxygen Concentration - - Weight 106.1 kg (233 lb 12.8 oz) 2024 10:43 AM WELD INSPECTOR Height 195.6 cm (6' 5) 09/04/2023 2:23 PM CDT Body Mass Index 27.72 09/04/2023 2:23 PM CDT Plan of Treatment Upcoming Encounters Date Type Department Care Team (Late st Contact Info) Description 04/30/2024 8:30 AM CDT Cardiac Device Check [facility] [address] [place] [address] Health Maintenance Due Date Last [...] HIV-1/O/2, 4TH GENERATION Routine 04/27/2022 2:14 PM WELD INSPECTOR Screening for HIV (human immunodeficiency virus) LC HCV ANTIBODY RFX TO QUANT PCR Routine 04/27/2022 2:14 PM WELD INSPECTOR Need for hepatitis C screening test LC LIPID PANEL AND CHOL/HDL RATIO Routine 04/27/2022 2:14 PM WELD INSPECTOR Lipid screening from Last 3 Months or Most Recently Relevant to Health Maintenance Results * LC LIPID PANEL AND CHOL/HDL RATIO (04/27/2022 2:14 PM WELD INSPECTOR) Pathologist [facility] Cholesterol, Total 131 100 - 199 mg/dL 04/29/2022 10:11 AM [facility] Triglycerides 93 0 - 149 mg/dL 04/29/2022 10:11 AM [facility] HDL Cholesterol 65 >39 mg/dL 10:11 AM [facility] VLDL Cholesterol Erlin 17 5 - 40 mg/dL 04/29/2022 10:11 AM [facility] LDL Chol Calc ([facility]) 49 0 - 99 mg/dL 04/29/2022 10:11 AM [facility] T. Chol/HDL Ratio 2.0 0.0 - 5.0 ratio 04/29/2022 10:11 AM [facility] Comment: T. Chol/HDL Ratio Men Women 1/2 Avg.Risk 3.4 3.3 Avg.Risk 5.0 4.4 2X Avg.Risk 9.6 7.1 3X Avg.Risk 23.4 11.0 Blood BLOOD SPECIMEN / Unknown Butterfly / Unknown 04/27/2022 2:14 PM WELD INSPECTOR 04/27/2022 2:16 PM WELD INSPECTOR Narrative [facility] ([facility]) - 04/29/2022 10:11 AM WELD INSPECTOR Performed at: [address] [place] [id number] Traffic Maintenance Supervisor: Antonio Head MD, Phone: [phone] Leonid Haro MD SEND OUTS Final Resu lt Performing Organization Address [facility]/ZIP Co de Phone Number [facility] ([facility]) [address] [place] [address], [place] * LC HCV ANTIBODY RFX TO QUANT PCR (04/27/2022 2:14 PM WELD INSPECTOR) HCV Ab Non Reactive Non Reactive 04/29/2022 10:06 PM WELD INSPECTOR [facility] ([facility]) Blood BLOOD SPECIMEN / Unknown Butterfly / Unknown 04/27/2022 2:14 PM WELD INSPECTOR 04/27/2022 2:16 PM WELD INS[address] N[address] [facility] ([facility]) - 04/29/2022 10:06 PM WELD INSPECTOR Performed at: [address] [place] [address] [id number] Traffic Maintenance Supervisor: Antonio Head MD, Phone: [phone] Leonid Haro MD LABORATORY Final Resu lt Performing Organization Address [facility]/ZIP Co de Phone Number [facility] ([facility]) [address] [place] [address], [place] * LC HIV-1/O/2, 4TH GENERATION (04/27/2022 2:14 PM WELD INSPECTOR) HIV Scr 4th Gen Non Reactive Non Reactive 04/29/2022 10:06 PM WELD INSPECTOR [facility] ([facility]) Comment: HIV Negative HIV-1/HIV-2 antibodies and HIV-1 p24 antigen were NOT detected. There is no laboratory evidence of HIV infection. Blood BLOOD SPECIMEN / Unknown Butterfly / Unknown 04/27/2022 2:14 PM WELD INSPECTOR 04/27/2022 2:16 PM WELD INS[address] Narr[address] [facility] - 04/29/2022 10:06 PM WELD INSPECTOR Performed at: [address] [place] [id number] Traffic Maintenance Supervisor: Antonio Head MD, Phone: [phone] us Leonid Haro MD LABORATORY Final Resu lt [facility] ([facility]) [address] [place] [id number], from Last 3 Months or Most Recently [...] with C diff symptoms 07/11/2022 07/11/2022 Insurance [facility] Advance Directives * Full Code (Latest Code Status on File) Date Activated Date Inactivated Comments 07/11/2022 9:18 AM 07/11/2022 3:46 PM Question Answer Comments Code Status Discussion: Reviewed Preferences * Full Code Date Activated Date Inactivated Comments 09/04/2017 9:35 AM 09/07/2017 4:16 PM Question Answer Comments Code Status Discussion: Discussed Care Teams Un[employer] Systems Roboticist Relationship Specialty Start Date End Date [place] [address] PCP - General Family Practice 03/15/13
[2024-02-27] MEDS: PIPERACILLIN/TAZOBACTAM 3.375 GM in 0.9 % SODIUM CHLORIDE Mini-bag 100 ML IVPB ×2 (12:43→18:27)
[2024-02-27 12:45] LABS: Lactate* 2.3 mmol/L (0.5-1.9)
[2024-02-27 12:55] LABS: Basophils Absolute Auto 0.01 K/uL (0.00-0.30); Basophils Percent Auto 0.1 % (0.0-3.0); Hematocrit 38.2 % (37.0-53.0); Hemoglobin* 13.1 gm/dL (13.5-17.5); Immature Granulocytes Abs Auto 0.03 K/uL (0.00-0.30); Immature Granulocytes Pct Auto 0.3 %; Lymphocytes Percent Auto 3.8 % (20-44); Mean Corpuscular HGB Conc 34 gm/dL (32-36); Mean Corpuscular Hemoglobin 31 pg (26-34); Mean Corpuscular Volume 91 fL (80-100); Monocytes Percent Auto 8.7 % (0.0-11.0); Neutrophils Percent Auto 87.1 % (42.0-72.0); Platelet Count* 126 K/uL (140-440); RDW Coefficient of Variation % 12.2 % (11.5-15.5); Red Blood Count 4.22 m/uL (4.30-5.90)
[2024-02-27 12:56] LABS: Slide Review Reflex No
[2024-02-27 13:03] LABS: Albumin* 4.6 g/dL (3.3-5.0); Chloride* 97 mmol/L (96-114); Potassium* 3.2 mmol/L (3.6-5.1); Sodium* 129 mmol/L (135-149)
[2024-02-27 13:05] LABS: Bilirubin Total* 1.3 mg/dL (0.1-1.5); Creatinine* 0.8 mg/dL (0.5-1.5); Est. Creatinine Clearance* 150.75; Estimated Glomerular Filt Rate 111 ml/min
[2024-02-27 13:06] LABS: Alanine Aminotransferase* 50 U/L (4-50); Alkaline Phosphatase* 123 U/L (40-150); Anion Gap 9 mEq/L (7-15); Aspartate Amino Transferase* 48 U/L (12-35); Blood Urea Nitrogen* 18 mg/dL (5-24); Calcium* 9.4 mg/dL (8.4-10.6); Carbon Dioxide* 23 mmol/L (20-32); Glucose* 106 mg/dL (60-115); Total Protein* 7.9 g/dL (6.0-8.3)
[2024-02-27 13:23] LABS: Procalcitonin* 0.38 ng/mL (<0.50)
[2024-02-27 13:25] LABS: PCR FLU A Negative PCR FLU A (Negative); PCR FLU B Negative PCR FLU B (Negative); PCR RSV Negative PCR RSV (Negative); SARS PCR* Negative SARS-CoV-2 (Negative)
[2024-02-27 13:35] LABS: C Reactive Protein* 16.2 mg/dL (0.5-1.0)
[2024-02-27] MEDS: VANCOMYCIN 2 GM/400 ML 2 GM/400 ML PIGGYBACK IVPB (13:46)
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
[2024-02-27] MEDS: THIAMINE 100 MG TABLET PO (16:29)
[2024-02-27] MEDS: NICOTINE 21 MG PATCH 1 PATCH TRANSDERMA (16:29)
[2024-02-27] MEDS: POTASSIUM BICARB 25 MEQ EFFERVESCENT TAB PO ×2 (16:29→18:27)
[2024-02-27] MEDS: LACTOBACILLUS ACIDOPHILUS 1 TABLET 2 TAB PO (17:32)
--- NOTE | 2024-02-27 17:44 | P.PODCN_ITS ---
HPI - Podiatry Data of Consult Date Seen: 02/27/24 Patient: Cindy Patient Consult date: 02/27/24 Requesting physician: Bella Euceda MD Primary care provider: Leonid Haro MD Consult Narrative Reason for consult: Right 3rd Toe infection Narrative: Siva Baxter is a 43 year old male with dense neuropathy presented to the emergency department with a severely infected right 3rd toe. He stubbed the middle toe of his right foot a week and half ago. He was bleeding at the time and he has been checking it every day. It has become progressively more swollen and red. He denies pain in that foot and states that he has an old injury that prevent insert him from feeling much in that leg. Yesterday he woke up feeling unwell but still went to work and then developed a fever while at work, so he had to leave early. He noticed red streaking this started working its way up his foot and leg. When he got home he still felt very unwell with chills and fever, so he made an appointment for this morning. In the clinic he was noted to be febrile, tachycardic, appearing unwell, toxic, shaking, pale and diaphoretic for which he was sent to the emergency department. It is notable that he had a partial toe amputation of the 2nd toe on that same foot almost 2 years ago and then a full amputation of the 2nd toe just a few months later. He denies any history of diabetes mellitus. cc:: CC: Bella Euceda MD Review of Systems Status of ROS: Reports: 10 or more systems reviewed and unremarkable except as noted in History and below [facility] Medical History (Updated 02/27/24 @ 17:08 by Bella Euceda MD) H pylori ulcer ?K27.9 - Peptic ulcer, site unspecified, unspecified as acute or chronic, without hemorrhage or perforation (ICD-10) ?B96.81 - Helicobacter pylori [H. pylori] as the cause of diseases classified elsewhere (ICD-10) Weight loss, unintentional ?R63.4 - Abnormal weight loss (ICD-10) Connective tissue disorder ?M35.9 - Systemic involvement of connective tissue, unspecified (ICD-10) Normal echocardiogram Pacemaker ?Z95.0 - Presence of cardiac pacemaker (ICD-10) Neuropathy ?G62.9 - Polyneuropathy, unspecified (ICD-10) Osteomyelitis ?M86.9 - Osteomyelitis, unspecified (ICD-10) Chronic insomnia ?F51.04 - Psychophysiologic insomnia (ICD-10) History of upper gastrointestinal hemorrhage ?Z87.19 - Personal history of other diseases of the digestive system (ICD-10) History of Clostridium difficile colitis ?Z86.19 - Personal history of other infectious and parasitic diseases (ICD- 10) History of sepsis ?Z86.19 - Personal history of other infectious and parasitic diseases (ICD- 10) Migraines ?G43.909 - Migraine, unspecified, not intractable, without status migrainosus (ICD-10) Glaucoma ?H40.9 - Unspecified glaucoma (ICD-10) Hypertension ?I10 - Essential (primary) hypertension (ICD-10) Gout ?M10.9 - Gout, unspecified (ICD-10) Alcohol dependence, daily use ?F10.20 - Alcohol dependence, uncomplicated (ICD-10) Surgical History (Updated 02/27/24 @ 14:40 by Bella Euceda MD) H/O esophagogastroduodenoscopy ?Z98.890 - Other specified postprocedural states (ICD-10) History of removal of skin mole ?Z98.890 - Other specified postprocedural states (ICD-10) ?Z87.2 - Personal history of diseases of the skin and subcutaneous tissue (ICD-10) Amputation toe ?S98.139A - Complete traumatic amputation of one unspecified lesser toe, initial encounter (ICD-10) Status post appendectomy ?Z90.49 - Acquired absence of other specified parts of digestive tract (ICD- 10) Family History (Updated 02/27/24 @ 14:41 by Bella Euceda MD) Mother VTE (venous thromboembolism) CHF (congestive heart failure) High blood pressure Sister No problems noted. Father Suicide Social History (Updated 02/27/24 @ 16:43 by Bella Euceda MD) Narrative: . 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 Chews tobacco daily, has done so for many years. Drinks 3-6 mixed drinks daily. Denies recreational drug use. Vielka is emergency contact Designates full code status What is your current living situation?: I presently have a place to live Problems where you live: no known problems Problems where you live details: none In the past 12 months, utilities in danger of being shut off: no In past 12 months, lack of transportation kept you from medical appts, meetings, work, or getting things needed for daily living: no In the past 12 mos, have been you worried that your food would run out before you had money to buy more?: never true In the past 12 mos, the food you bought just didn't last and you didn't have money to buy more?: never true Highest level of school completed/degree received: high school graduate Smoking Status: Never smoker Do you use any of these nicotine containing products: None Second hand tobacco smoke exposure: No How often do you have a drink containing alcohol: monthly or less Alcohol type: beer and wine How many standard drinks containing alcohol do you have on a typical day: 3 or 4 How often do you have six or more drinks on one occasion: Less than monthly AUDIT-C Alcohol total score: 3 Non-prescribed substance use: denies use Caffeine: No How often does anyone, including family, friends and others, physically hurt you : never How often does anyone, including family, friends and others, insult or talk down to you: never How often does anyone, including family, friends and others, threaten you with harm: never How often does anyone, including family, friends and others, scream or curse at you: never service: No Exam Narrative: Exam Narrative: General: No distress Vascular: Palpable dorsalis pedis and posterior tibial pulses right foot. Capillary fill time unresponsive on 3rd toe and normal on remaining toes. Neuro: Insensate to light touch. Musculoskeletal: Absent 2nd toe right foot. Third toe with severe flexion deformity at the DIPJ and extension deformity at the MPJ. Manipulation of the toe reveals crepitus at the fracture site. Derm: Early gangrene of the 3rd toe right foot. There is ascending cellulitis over the dorsal foot extending up the lower leg. There is abscess formation and fluctuance at the DIPJ and dorsal 3rd toe. There is exposed bone fracture at the eponychial fold. There is purulent drainage. Labs: White blood cell count 10.2, neutrophils 8.9, CRP 16.2 Wound culture: Pending X-ray: Avulsion fracture dorsal distal phalanx 3rd toe with flexion deformity. There is possible gas formation to the distal tip of the toe. 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 Will continue with IV antibiotics. I recommend amputation of the distal toe to help get control of the infection. Due to his dense neuropathy we can do this bedside. Once the infection is better controlled we will plan on revisional amputation of the 3rd toe in the next few days. I discussed the procedure and reviewed the plan and verbal consent given for amputation of the distal toe bedside tonight. He can be weight-bearing as tolerated. Will follow. Procedure: Standard time-out protocol followed. After verbal consent and sterile prep a 15 blade was used to make a transverse incision through the DIPJ disarticulating the joint and removing the distal phalanx and fracture fragment. Amputation was a guillotine type amputation through and through removing the entire distal portion of the toe. Very minimal bleeding noted at this level. There is purulence dorsally that extended over the middle phalanx which was then debrided and removed. All necrotic tissue excised. Wound was thoroughly irrigated with VASHE wound solution. Wet to dry packing was placed with VASHE moistened gauze. Const: Vital Signs, click to edit/add: Vital Signs - 24 hr 02/27/24 11:52 02/27/24 12:33 02/27/24 12:34 Temperature 100.5 F H Pulse Rate 96 95 Pulse Rate [Right Pulse Oximeter] 100 Pulse Rate [Right Radial] Respiratory Rate 28 H 16 Blood Pressure 130/80 Blood Pressure [Ri ght Arm] Blood Pressure [Ri ght Upper Arm] 144/85 H Pulse Oximetry 97 97 [facility] 02/27/24 12:35 02/27/24 12:45 02/27/24 12:47 Temperature Pulse Rate 98 88 89 Pulse Rate [Right Pulse Oximeter] Pulse Rate [Right Radial] Respiratory Rate Blood Pressure 135/83 Blood Pressure [Ri ght Arm] Blood Pressure [Ri ght Upper Arm] Pulse Oximetry 96 95 96 [facility] 02/27/24 12:48 02/27/24 13:00 02/27/24 13:02 Temperature Pulse Rate 87 86 Pulse Rate [Right Pulse Oximeter] Pulse Rate [Right Radial] Respiratory Rate Blood Pressure 133/77 Blood Pressure [Ri ght Arm] Blood Pressure [Ri ght Upper Arm] Pulse Oximetry 96 97 96 [facility] 02/27/24 13:15 02/27/24 13:30 02/27/24 13:32 Temperature 98.4 F Pulse Rate 81 81 83 Pulse Rate [Right Pulse Oximeter] Pulse Rate [Right Radial] Respiratory Rate Blood Pressure 130/78 Blood Pressure [Ri ght Arm] Blood Pressure [Ri ght Upper Arm] Pulse Oximetry 96 95 94 Oxygen Delivery Me thod 02/27/24 14:00 02/27/24 15:23 Temperature 99.3 F 99.3 F Pulse Rate Pulse Rate [Right Pulse Oximeter] Pulse Rate [Right Radial] 78 78 Respiratory Rate 18 18 Blood Pressure Blood Pressure [Ri ght Arm] 125/80 125/80 Blood Pressure [Ri ght Upper Arm] Pulse Oximetry 97 97 Oxygen Delivery Me thod Room Air Room Air Nail Debridement Qualifies If: Qualifiers If:: A patient qualifies for nail debridement if they have: 1 class A finding (Q7) 2 class B findings (Q8) OR 1 class B & 2 class C findings in addition to a primary condition (Q9)
[2024-02-27 18:57] LABS: Amphetamine Screen Urine Negative (Negative); Barbiturate Screen Urine Negative (Negative); Benzodiazepines Screen Urine Negative (Negative); Cannabinoid Screen Urine POSITIVE (Negative); Cocaine Screen Urine Negative (Negative); Methadone Screen Urine Negative (Negative); Methamphetamines Screen Urine Negative (Negative); Opiate Screen Urine Negative (Negative); Oxycodone Screen Urine Negative (Negative); Phencyclidine Screen Urine Negative (Negative); Tricyclic Antidepressant Urine Negative (Negative)
[2024-02-27 19:03] LABS: Hemoglobin A1C* 4.4 % (0-5.6)
[2024-02-27] MEDS: SERTRALINE 50 MG TABLET PO (19:29)
[2024-02-27] MEDS: MELATONIN 3 MG TABLET 12 MG PO (19:30)
[2024-02-27] MEDS: ACETAMINOPHEN 325 MG TABLET 650 MG PO (19:30)
[2024-02-27] MEDS: allopurinoL 300 MG TABLET PO (19:30)
[2024-02-27] MEDS: lisinopriL 20 MG TABLET PO (19:30)
[2024-02-27] MEDS: BRIMONIDINE TARTRATE 0.2% OPHTH 1 DROP EYE-BOTH (19:30)
[2024-02-27] MEDS: timoloL maleate 0.5 % 1 DROP EYE-BOTH (19:31)
[2024-02-27] MEDS: LATANOPROST 0.005% OPHTH 1 DROP EYE-BOTH (19:31)
[2024-02-27] MEDS: hydrOXYzine pamoate 25 MG CAPSULE 100 MG PO (19:33)
[2024-02-27] MEDS: VANCOMYCIN 1.5 GM/300 ML 1.5 GM/300 ML PIGGYBACK IVPB (22:19)
[2024-02-28] VITALS (9 sets, daily range): BP systolic 103–118; BP diastolic 62–79; PULSE 58–73; RESP 16–18; TEMP 36.6–38.1; O2SAT 97–100
[2024-02-28] MEDS: LACTATED RINGERS 1000 ML 1,000 ML IV (00:28)
[2024-02-28] MEDS: PIPERACILLIN/TAZOBACTAM 3.375 GM in 0.9 % SODIUM CHLORIDE Mini-bag 100 ML IVPB ×4 (01:36→18:34)
[2024-02-28] MEDS: VANCOMYCIN 1.5 GM/300 ML 1.5 GM/300 ML PIGGYBACK IVPB (06:07)
[2024-02-28 06:33] LABS: Basophils Absolute Auto 0.02 K/uL (0.00-0.30); Basophils Percent Auto 0.2 % (0.0-3.0); Eosinophils Absolute Auto 0.03 K/uL (0.00-0.50); Eosinophils Percent Auto 0.3 % (0.0-7.0); Hematocrit 33.4 % (37.0-53.0); Hemoglobin* 11.3 gm/dL (13.5-17.5); Immature Granulocytes Abs Auto 0.03 K/uL (0.00-0.30); Immature Granulocytes Pct Auto 0.3 %; Lymphocytes Percent Auto 13.5 % (20-44); Mean Corpuscular HGB Conc 34 gm/dL (32-36); Mean Corpuscular Hemoglobin 32 pg (26-34); Mean Corpuscular Volume 93 fL (80-100); Monocytes Percent Auto 11.1 % (0.0-11.0); Neutrophils Percent Auto 74.6 % (42.0-72.0); Platelet Count* 121 K/uL (140-440); RDW Coefficient of Variation % 12.7 % (11.5-15.5); Red Blood Count 3.59 m/uL (4.30-5.90); White Blood Count* 9.47 K/uL (4.50-11.00)
[2024-02-28 06:54] LABS: Slide Review Reflex No
--- NOTE | 2024-02-28 06:54 | PC.NURSE ---
End of shift report [id number]: Pleasant and cooperative with cares. Pain to low back reported but tolerable, patient states that he usually sleeps in a recliner so he's not used to being in bed. Did offer to help him set up recliner in room for the night but declined. Patient was shaking and feeling chills at 1920, temp 101.0, prn tylenol administered and temp reduced to 100.0. Patient denied further chills. Dressing to right lower extremity clean dry and intact, patient denies any pain to site. Transfers and ambulates independently.
[2024-02-28 06:59] LABS: Chloride* 102 mmol/L (96-114)
[2024-02-28 07:00] LABS: Albumin* 3.7 g/dL (3.3-5.0); Sodium* 134 mmol/L (135-149)
[2024-02-28 07:01] LABS: Potassium* 3.3 mmol/L (3.6-5.1)
[2024-02-28 07:03] LABS: Anion Gap 5 mEq/L (7-15); Aspartate Amino Transferase* 39 U/L (12-35); Bilirubin Direct* 0.8 mg/dL (0.0-0.5); Bilirubin Total* 1.5 mg/dL (0.1-1.5); Carbon Dioxide* 27 mmol/L (20-32); Creatinine* 0.8 mg/dL (0.5-1.5); Est. Creatinine Clearance* 150.75; Estimated Glomerular Filt Rate 111 ml/min; Total Protein* 6.7 g/dL (6.0-8.3)
[2024-02-28 07:04] LABS: Alanine Aminotransferase* 44 U/L (4-50); Alkaline Phosphatase* 111 U/L (40-150); Blood Urea Nitrogen* 17 mg/dL (5-24); Calcium* 8.8 mg/dL (8.4-10.6); Glucose* 94 mg/dL (60-115)
[2024-02-28 07:19] LABS: C Reactive Protein* 17.4 mg/dL (0.5-1.0)
[2024-02-28] MEDS: LACTOBACILLUS ACIDOPHILUS 1 TABLET 2 TAB PO ×3 (07:41→17:52)
[2024-02-28] MEDS: timoloL maleate 0.5 % 1 DROP EYE-BOTH ×2 (09:26→21:01)
[2024-02-28] MEDS: MULTIVITAMIN/MINERALS 1 TABLET 1 TAB PO (09:26)
[2024-02-28] MEDS: FOLIC ACID 1 MG TABLET PO (09:26)
[2024-02-28] MEDS: BRIMONIDINE TARTRATE 0.2% OPHTH 1 DROP EYE-BOTH ×2 (09:26→21:01)
[2024-02-28] MEDS: SODIUM CHLORIDE 0.9 % (FLUSH) 10 ML SYRINGE 5 ML IVF ×2 (09:27→21:02)
--- NOTE | 2024-02-28 12:21 | W.PM.PODPN ---
Podiatry-PN: Subj Subjective Time Seen by Provider: 12:00 Date Seen: 02/28/24 Exam Narrative: Exam Narrative: General: No distress Vascular: Palpable dorsalis pedis and posterior tibial pulses right foot. Capillary fill time unresponsive on 3rd toe and normal on remaining toes. Neuro: Insensate to light touch. Musculoskeletal: Absent 2nd toe right foot. Third toe is much improved with decrease in edema. There is still intense erythema. There is ascending cellulitis over the dorsal foot extending up the lower leg. This is slightly less intense. There is no longer any purulent drainage. Remaining tissue appears viable. Exposed middle phalanx. Labs: White blood cell count 9.47, neutrophils 7.1, CRP 17.4 Wound culture: Gram-positive cocci in chains X-ray: Avulsion fracture dorsal distal phalanx 3rd toe with flexion deformity. There is possible gas formation to the distal tip of the toe. Assessment: S/p amputation distal toe postop day 1, Gas gangrene 3rd toe right foot, 3rd toe fracture right Plan: I discussed treatment options with Siva. Will continue with IV antibiotics. The toe was definitely improved but no where near ready for further amputation. I anticipate there will be able to proceed Monday morning with further amputation of the toe at the MPJ with primary closure. Based on the amount of erythema to not see it will be possible sooner. Sterile dressing change with wet-to-dry dressing using VASHE solution. Const: Vital Signs, click to edit/add: Vital Signs - 24 hr 02/27/24 12:33 02/27/24 12:34 02/27/24 12:35 Temperature Pulse Rate 96 95 98 Pulse Rate [Pulse Oximeter] Pulse Rate [Right Radial] Respiratory Rate 16 Blood Pressure 130/80 Blood Pressure [Ri ght Arm] Pulse Oximetry 97 95 96 [facility] 02/27/24 12:45 02/27/24 12:47 02/27/24 12:48 Temperature Pulse Rate 88 89 Pulse Rate [Pulse Oximeter] Pulse Rate [Right Radial] Respiratory Rate Blood Pressure 135/83 Blood Pressure [Ri ght Arm] Pulse Oximetry 95 96 96 Oxygen Delivery [place] thod 02/27/24 13:00 02/27/24 13:02 02/27/24 13:15 Temperature Pulse Rate 87 86 81 Pulse Rate [Pulse Oximeter] Pulse Rate [Right Radial] Respiratory Rate Blood Pressure 133/77 Blood Pressure [Ri ght Arm] Pulse Oximetry 97 96 96 Oxygen Delivery Me thod 02/27/24 13:30 02/27/24 13:32 02/27/24 14:00 Temperature 98.4 F 99.3 F Pulse Rate 81 83 Pulse Rate [Pulse Oximeter] Pulse Rate [Right Radial] 78 Respiratory Rate 18 Blood Pressure 130/78 Blood Pressure [Ri ght Arm] 125/80 Pulse Oximetry 95 94 97 Oxygen Delivery Me thod Room Air 02/27/24 15:23 02/27/24 19:00 02/27/24 19:30 Temperature 99.3 F 101.0 F H 101.0 F H Pulse Rate Pulse Rate [Pulse Oximeter] Pulse Rate [Right Radial] 78 76 Respiratory Rate 18 18 Blood Pressure Blood Pressure [Ri ght Arm] 125/80 116/75 Pulse Oximetry 97 100 Oxygen Delivery Me thod Room Air Room Air 02/27/24 23:00 02/27/24 23:00 02/27/24 23:00 Temperature 100.0 F H Pulse Rate Pulse Rate [Pulse Oximeter] Pulse Rate [Right Radial] 73 67 Respiratory Rate 16 16 16 Blood Pressure Blood Pressure [Ri ght Arm] 95/65 Pulse Oximetry 99 99 Oxygen Delivery Me thod Room Air Room Air 02/28/24 03:00 02/28/24 07:30 02/28/24 07:30 Temperature 100.0 F H 98.4 F Pulse Rate Pulse Rate [Pulse Oximeter] Pulse Rate [Right Radial] 73 67 67 Respiratory Rate 16 18 18 Blood Pressure Blood Pressure [Ri ght Arm] 103/62 110/79 Pulse Oximetry 99 98 Oxygen Delivery Me thod Room Air Room Air 02/28/24 09:43 02/28/24 11:30 Temperature 98.2 F Pulse Rate Pulse Rate [Pulse Oximeter] 63 Pulse Rate [Right Radial] Respiratory Rate 18 18 Blood Pressure Blood Pressure [Ri ght Arm] 115/67 Pulse Oximetry 98 100 Oxygen Delivery Me thod Room Air Room Air Podiatry-PN: Obj Labs Labs: Laboratory Results - last 24 hr 02/27/24 02/27/24 02/27/24 12:30 15:21 16:15 WBC 10.20 RBC 4.22 L Hgb 13.1 L Hct 38.2 MCV 91 MCH 31 MCHC 34 RDW Coeff of Juni 12.2 Plt Count 126 L Neut % (Auto) 87.1 H Lymph % (Auto) 3.8 L Andrews % (Auto) 8.7 Eos % (Auto) 0.0 Baso % (Auto) 0.1 Neut # (Auto) 8.90 H Lymph # (Auto) 0.40 L Andrews # (Auto) 0.90 Eos # (Auto) 0.00 Baso # (Auto) 0.01 Abs Immat Gran (auto) 0.03 Imm/Tot Granulo (auto) 0.3 Sodium 129 L Potassium 3.2 L Chloride 97 Carbon Dioxide 23 Anion Gap 9 BUN 18 Creatinine 0.8 Estimated Creat Clear 150.75 Estimated GFR 111 Glucose 106 Hemoglobin A1c 4.4 Lactate 2.3 H 1.0 Calcium 9.4 Total Bilirubin 1.3 Direct Bilirubin AST 48 H ALT 50 Alkaline Phosphatase 123 C-Reactive Protein 16.2 H Total Protein 7.9 Albumin 4.6 Procalcitonin 0.38 Urine Opiates Screen Negative Ur Oxycodone Screen Negative Urine Methadone Screen Negative Ur Barbiturates Screen Negative U Tricyclic Antidepress Negative Ur Phencyclidine Scrn Negative Ur Amphetamines Screen Negative U Methamphetamines Scrn Negative U Benzodiazepines Scrn Negative Urine Cocaine Screen Negative U Marijuana (THC) Screen POSITIVE A Ur Drug Screen Comment See Note SARS-CoV-2 (PCR) Negative SARS-CoV-2 Influenza Type A (PCR) Negative PCR FLU A Influenza Type B (PCR) Negative PCR FLU B RSV (PCR) Negative PCR RSV 02/28/24 05:53 WBC 9.47 RBC 3.59 L Hgb 11.3 L Hct 33.4 L MCV 93 MCH 32 MCHC 34 RDW Coeff of Juni 12.7 Plt Count 121 L Neut % (Auto) 74.6 H Lymph % (Auto) 13.5 L Andrews % (Auto) 11.1 H Eos % (Auto) 0.3 Baso % (Auto) 0.2 Neut # (Auto) 7.10 H Lymph # (Auto) 1.30 Andrews # (Auto) 1.10 H Eos # (Auto) 0.03 Baso # (Auto) 0.02 Abs Immat Gran (auto) 0.03 Imm/Tot Granulo (auto) 0.3 Sodium 134 L Potassium 3.3 L Chloride 102 Carbon Dioxide 27 Anion Gap 5 L BUN 17 Creatinine 0.8 Estimated Creat Clear 150.75 Estimated GFR 111 Glucose 94 Hemoglobin A1c Lactate Calcium 8.8 Total Bilirubin 1.5 Direct Bilirubin 0.8 H AST 39 H ALT 44 Alkaline Phosphatase 111 C-Reactive Protein 17.4 H Total Protein 6.7 Albumin 3.7 Procalcitonin Urine Opiates Screen Ur Oxycodone Screen Urine Methadone Screen Ur Barbiturates Screen U Tricyclic Antidepress Ur Phencyclidine Scrn Ur Amphetamines Screen U Methamphetamines Scrn U Benzodiazepines Scrn Urine Cocaine Screen U Marijuana (THC) Screen Ur Drug Screen Comment SARS-CoV-2 (PCR) Influenza Type A (PCR) Influenza Type B (PCR) RSV (PCR)
--- NOTE | 2024-02-28 14:30 | REH.OT ---
OT: Order received, chart reviewed, met with patient who presents declining need for OT intervention. Per nsg, PT and patient is at baseline, independent with mobility and cares in room and declines need for DME with WBAT status RLE. Patient educated on role of OT and if new concerns or questions arise, he reports will inform staff. Will discontinue order.
[2024-02-28] MEDS: THIAMINE 100 MG TABLET PO (15:27)
--- NOTE | 2024-02-28 16:34 | PM.IMPN1 ---
Progress Note: A&P Assessment and plan (1) Cellulitis of third toe of right foot: Problem details: - Admit for treatment of cellulitis of toe, probable need for surgical intervention as well as IV antibiotics, anticipated midnights in the hospital is 3. - I think he is somewhat immunocompromised from chronic alcoholism. HgbA1C is 4.4. - Continue zosyn/vanco started in ER. Cultures pending - Consult Dr. Gordillo, podiatry Status: Acute (2) Lymphangitis of toe: Problem details: Going up right leg from right foot Status: Acute (3) Alcoholism: Problem details: - I suspect he has some balance issues when drinking that contribute to falls and injury and also delay him getting care. - Monitor for withdrawal. Start CIWA protocol. Status: Acute (4) Hyponatremia: Problem details: -improved Status: Acute (5) Hypokalemia: Problem details: - replace orally. Improved Status: Acute Plan Continue in hospital for medical management of his toe infection, cellulitis, lymphangitis with IV antibiotics and surgical management of his gangrenous toe. Continue to monitor and manage other medical problems noted above. Total time spent today is 35 minutes in review of outside records, past medical history and discussion with patient and other providers about ongoing management of his toe Subjective Date Seen: 02/28/24 Interval history: Siva Baxter is a 43 year old male with h/o daily heavy alcohol use, tobacco use, who stubbed the middle toe of his right foot a week and half ago. He was bleeding at the time and he has been checking it every day. It has become progressively more swollen and red. He denies pain in that foot and states that he has an old injury that prevent insert him from feeling much in that leg. Yesterday he woke up feeling unwell but still went to work and then developed a fever while at work, so he had to leave early. When he got home he still felt very unwell with chills and fever, so he made an appointment for this morning. In the clinic he was noted to be febrile, tachycardic, appearing unwell, toxic, shaking, pale and diaphoretic for which he was sent to the emergency department. It is notable that he had a partial toe amputation of the 2nd toe on that same foot almost 2 years ago and then a full amputation of the 2nd toe just a few months later. He denies any history of diabetes mellitus. 02/28/2024: Patient reports feeling better today. Dr. Gordillo has inspected the foot which appears better. He is planning additional toe amputation possibly Monday. Patient has no other concerns today. Monitor for alcohol withdrawal has been unremarkable with no evidence of withdrawal. Exam Narrative: Exam Narrative: He is alert and appears in no distress. Breathing is unlabored. Lower extremities examined. Right foot is just recently re bandage so not re-examined. He does still have some lymphangitis going up his right leg. Absent sensation but capillary refill is adequate in the right foot. Const: Vital Signs, click to edit/add: Vital Signs - 24 hr 02/27/24 19:00 02/27/24 19:30 02/27/24 23:00 Temperature 101.0 F H 101.0 F H Pulse Rate [Pulse Oximeter] Pulse Rate [Right Radial] 76 73 Respiratory Rate 18 16 Blood Pressure [Ri ght Arm] 116/75 Pulse Oximetry [facility] 02/27/24 23:00 02/27/24 23:00 02/28/24 03:00 Temperature 100.0 F H 100.0 F H Pulse Rate [Pulse Oximeter] Pulse Rate [Right Radial] 67 73 Respiratory Rate 16 16 16 Blood Pressure [Ri ght Arm] 95/65 103/62 Pulse Oximetry 99 99 99 [facility] Room Air Room Air 02/28/24 07:30 02/28/24 07:30 02/28/24 07:30 Temperature 98.4 F 98.4 F Pulse Rate [Pulse Oximeter] 67 Pulse Rate [Right Radial] 67 67 Respiratory Rate 18 18 18 Blood Pressure [Ri ght Arm] 110/79 110/79 Pulse Oximetry 98 98 Oxygen Delivery Dc thod Room Air Room Air 02/28/24 09:43 02/28/24 11:30 02/28/24 11:30 Temperature 98.2 F 98.2 F Pulse Rate [Pulse Oximeter] 63 63 Pulse Rate [Right Radial] Respiratory Rate 18 18 18 Blood Pressure [Ri ght Arm] 115/67 115/67 Pulse Oximetry 98 100 [facility] Room Air Room Air 02/28/24 15:37 02/28/24 15:38 02/28/24 15:38 Temperature 99.3 F Pulse Rate [Pulse Oximeter] 58 L 58 L Pulse Rate [Right Radial] Respiratory Rate 18 18 18 Blood Pressure [Ri ght Arm] 116/68 Pulse Oximetry 98 98 Oxygen Delivery Me thod Room Air Room Air Labs Labs: Laboratory Results - last 24 hr 02/27/24 02/27/24 02/28/24 15:21 16:15 05:53 WBC 9.47 RBC 3.59 L Hgb 11.3 L Hct 33.4 L MCV 93 MCH 32 MCHC 34 RDW Coeff of Juni 12.7 Plt Count 121 L Neut % (Auto) 74.6 H Lymph % (Auto) 13.5 L Swisher % (Auto) 11.1 H Eos % (Auto) 0.3 Baso % (Auto) 0.2 Neut # (Auto) 7.10 H Lymph # (Auto) 1.30 Swisher # (Auto) 1.10 H Eos # (Auto) 0.03 Baso # (Auto) 0.02 Abs Immat Gran (auto) 0.03 Imm/Tot Granulo (auto) 0.3 Sodium 134 L Potassium 3.3 L Chloride 102 Carbon Dioxide 27 Anion Gap 5 L BUN 17 Creatinine 0.8 Estimated Creat Clear 150.75 Estimated GFR 111 Glucose 94 Hemoglobin A1c 4.4 Calcium 8.8 Total Bilirubin 1.5 Direct Bilirubin 0.8 H AST 39 H ALT 44 Alkaline Phosphatase 111 C-Reactive Protein 17.4 H Total Protein 6.7 Albumin 3.7 Urine Opiates Screen Negative Ur Oxycodone Screen Negative Urine Methadone Screen Negative Ur Barbiturates Screen Negative U Tricyclic Antidepress Negative Ur Phencyclidine Scrn Negative Ur Amphetamines Screen Negative U Methamphetamines Scrn Negative U Benzodiazepines Scrn Negative Urine Cocaine Screen Negative U Marijuana (THC) Screen POSITIVE A Ur Drug Screen Comment See Note
[2024-02-28] MEDS: POTASSIUM BICARB 25 MEQ EFFERVESCENT TAB PO (17:52)
--- NOTE | 2024-02-28 19:13 | PC.NURSE ---
End of Shift: Patient pleasant and cooperative, A&O.VSS, afebrile. SpO2 maintained above 90% on RA. Patient denies pain this shift. Dressing to right foot C/D/I. Tolerating regular diet. Independent in room. ?
[2024-02-28] MEDS: LATANOPROST 0.005% OPHTH 1 DROP EYE-BOTH (21:01)
[2024-02-28] MEDS: SERTRALINE 50 MG TABLET PO (21:01)
[2024-02-28] MEDS: allopurinoL 300 MG TABLET PO (21:01)
[2024-02-28] MEDS: MELATONIN 3 MG TABLET 12 MG PO (21:01)
[2024-02-28] MEDS: hydrOXYzine pamoate 25 MG CAPSULE 100 MG PO (21:05)
[2024-02-29] VITALS (10 sets, daily range): BP systolic 120–144; BP diastolic 82–94; PULSE 60–61; RESP 18; TEMP 36.5–37; O2SAT 97–100
[2024-02-29] MEDS: PIPERACILLIN/TAZOBACTAM 3.375 GM in 0.9 % SODIUM CHLORIDE Mini-bag 100 ML IVPB ×4 (01:01→20:32)
--- NOTE | 2024-02-29 06:33 | PC.NURSE ---
Shift note: Pt is alert and oriented. Dressing clean and dry. Patient had temperature of 100.1 at the beginning of the shift at 1900. dropped to 97.9 at recheck at 2200 and has remained within normal range for the rest of the night. He denied any pain. He had adequate sleep. Patient is independent in room. Pleasant and cooperate with treatment and care.
[2024-02-29 07:09] LABS: Chloride* 107 mmol/L (96-114); Sodium* 139 mmol/L (135-149)
[2024-02-29 07:12] LABS: Creatinine* 0.7 mg/dL (0.5-1.5); Est. Creatinine Clearance* 172.28; Estimated Glomerular Filt Rate 116 ml/min
[2024-02-29 07:13] LABS: Anion Gap 7 mEq/L (7-15); Blood Urea Nitrogen* 15 mg/dL (5-24); Calcium* 9.3 mg/dL (8.4-10.6); Carbon Dioxide* 25 mmol/L (20-32); Glucose* 77 mg/dL (60-115)
[2024-02-29 07:38] LABS: C Reactive Protein* 13.1 mg/dL (0.5-1.0)
[2024-02-29] MEDS: LACTOBACILLUS ACIDOPHILUS 1 TABLET 2 TAB PO ×3 (08:25→18:31)
[2024-02-29] MEDS: FOLIC ACID 1 MG TABLET PO (08:25)
[2024-02-29] MEDS: MULTIVITAMIN/MINERALS 1 TABLET 1 TAB PO (08:25)
[2024-02-29] MEDS: timoloL maleate 0.5 % 1 DROP EYE-BOTH ×2 (09:07→22:02)
[2024-02-29] MEDS: BRIMONIDINE TARTRATE 0.2% OPHTH 1 DROP EYE-BOTH ×2 (09:07→22:03)
[2024-02-29] MEDS: THIAMINE 100 MG TABLET PO (16:22)
--- NOTE | 2024-02-29 17:39 | W.PM.PODPN ---
Podiatry-PN: Subj Subjective Date Seen: 02/29/24 Interval history: Patient seen bedside this evening. States overall doing very well. No complaints. Dressing was changed by nursing earlier today. Exam Narrative: Exam Narrative: General: No distress Vascular: Palpable dorsalis pedis and posterior tibial pulses right foot. Capillary fill time unresponsive on 3rd toe and normal on remaining toes. Neuro: Insensate to light touch. Musculoskeletal: Absent 2nd toe right foot. Third toe continues to improve with decrease in edema. There is less intense erythema. There is ascending cellulitis over the dorsal foot extending up the lower leg. This is nearly resolved. There is no longer any purulent drainage. Remaining tissue appears viable and healthy. Exposed middle phalanx. Labs: CRP 13.1 Wound culture: Gram-positive cocci in chains sent to [place] for sensitivities which are not complete X-ray: Avulsion fracture dorsal distal phalanx 3rd toe with flexion deformity. There is possible gas formation to the distal tip of the toe. Assessment: S/p amputation distal toe postop day 1, Gas gangrene 3rd toe right foot, 3rd toe fracture right Plan: I discussed treatment options with Siva. Will continue with IV antibiotics. The toe was definitely improved but not ready for further amputation. Plan to proceed Monday morning with further amputation of the toe at the MPJ with primary closure. Based on the amount of erythema it will be possible sooner. Sterile dressing change with wet-to-dry dressing using VASHE solution. Const: Vital Signs, click to edit/add: Vital Signs - 24 hr 02/28/24 19:00 02/28/24 22:54 02/28/24 22:54 Temperature 100.6 F H Pulse Rate [Pulse Oximeter] 68 60 Respiratory Rate 18 18 18 Blood Pressure [Ri t Arm] 118/66 Pulse Oximetry 97 97 Oxygen Delivery Me thod Room Air Room Air 02/28/24 22:54 02/29/24 02:11 02/29/24 07:00 Temperature 97.9 F 97.7 F Pulse Rate [Pulse Oximeter] 60 60 61 Respiratory Rate 18 18 18 Blood Pressure [Ri ght Arm] 116/77 120/82 Pulse Oximetry 97 97 Oxygen Delivery Me thod Room Air Room Air 02/29/24 08:23 02/29/24 09:00 02/29/24 10:40 Temperature 98.3 F 98.3 F Pulse Rate [Pulse Oximeter] 61 61 Respiratory Rate 18 18 18 Blood Pressure [Ri ght Arm] 135/89 135/89 Pulse Oximetry 100 100 100 Oxygen Delivery Me thod Room Air Room Air Room Air 02/29/24 11:00 02/29/24 17:23 02/29/24 17:25 Temperature 98.0 F 98.0 F Pulse Rate [Pulse Oximeter] 61 60 Respiratory Rate 18 18 18 Blood Pressure [Ri ght Arm] 139/94 H 144/93 H Pulse Oximetry 100 100 100 Oxygen Delivery Me thod Room Air Room Air Room Air 02/29/24 17:27 Temperature Pulse Rate [Pulse Oximeter] 60 Respiratory Rate 18 Blood Pressure [Ri ght Arm] Pulse Oximetry Oxygen Delivery Me thod Podiatry-PN: Obj Labs Labs: Laboratory Results - last 24 hr 02/29/24 06:10 Sodium 139 Potassium 3.0 L Chloride 107 Carbon Dioxide 25 Anion Gap 7 BUN 15 Creatinine 0.7 Estimated Creat Clear 172.28 Estimated GFR 116 Glucose 77 Calcium 9.3 C-Reactive Protein 13.1 H
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
--- NOTE | 2024-02-29 19:46 | PC.NURSE ---
End of Shift: Patient pleasant and cooperative, A&O. VSS, afebrile. Dressing change done this shift. Independent in room. Tolerating regular diet. ?
[2024-02-29] MEDS: hydrOXYzine pamoate 25 MG CAPSULE 100 MG PO (22:00)
[2024-02-29] MEDS: MELATONIN 3 MG TABLET 12 MG PO (22:00)
[2024-02-29] MEDS: SERTRALINE 50 MG TABLET PO (22:01)
[2024-02-29] MEDS: LATANOPROST 0.005% OPHTH 1 DROP EYE-BOTH (22:01)
[2024-02-29] MEDS: allopurinoL 300 MG TABLET PO (22:01)
[2024-02-29] MEDS: SODIUM CHLORIDE 0.9 % (FLUSH) 10 ML SYRINGE 5 ML IVF (22:04)
[2024-03-01] VITALS (10 sets, daily range): BP systolic 127–185; BP diastolic 76–125; PULSE 60–68; RESP 18; TEMP 36.6–38.7; O2SAT 97–100
[2024-03-01] MEDS: PIPERACILLIN/TAZOBACTAM 3.375 GM in 0.9 % SODIUM CHLORIDE Mini-bag 100 ML IVPB ×4 (01:05→19:26)
--- NOTE | 2024-03-01 06:48 | W.PM.PODPN ---
Podiatry-PN: Subj Subjective Time Seen by Provider: 06:35 Date Seen: 03/01/24 Interval history: Siva Baxter is a 43 year old male seen bedside this a.m.. Doing well without complaints. Exam Narrative: Exam Narrative: General: No distress Vascular: Palpable dorsalis pedis and posterior tibial pulses right foot. Capillary fill time unresponsive on 3rd toe and normal on remaining toes. Neuro: Insensate to light touch. Musculoskeletal: Absent 2nd toe right foot. Third toe continues to improve with decrease in edema. There is less intense erythema. There is ascending cellulitis over the dorsal foot extending up the lower leg. This is nearly resolved. There is no longer any purulent drainage. Remaining tissue appears viable and healthy. Exposed middle phalanx. Wound culture: Group G Streptococcus sent to [place] for sensitivities which are not complete X-ray: Avulsion fracture dorsal distal phalanx 3rd toe with flexion deformity. There is possible gas formation to the distal tip of the toe. Assessment: S/p amputation distal toe postop day 3, Gas gangrene 3rd toe right foot, 3rd toe fracture right Plan: I discussed treatment options with Siva. Will continue with IV antibiotics. Plan to proceed Monday morning with further amputation of the toe at the MPJ with primary closure. If cultures are complete I would anticipate possibility of discharge home tomorrow after surgery. He will need 2 weeks oral antibiotics once sensitivities are known. Sterile dressing change with wet-to-dry dressing using VASHE solution. Const: Vital Signs, click to edit/add: Vital Signs - 24 hr 02/29/24 07:00 02/29/24 08:23 02/29/24 09:00 Temperature 98.3 F 98.3 F Pulse Rate [Pulse Oximeter] 61 61 61 Respiratory Rate 18 18 18 Blood Pressure [Ri ght Arm] 135/89 135/89 Pulse Oximetry 100 100 Oxygen Delivery Me thod Room Air Room Air 02/29/24 10:40 02/29/24 11:00 02/29/24 17:23 Temperature 98.0 F Pulse Rate [Pulse Oximeter] 61 Respiratory Rate 18 18 18 Blood Pressure [Ri ght Arm] 139/94 H Pulse Oximetry 100 100 100 Oxygen Delivery Me thod Room Air Room Air Room Air 02/29/24 17:25 02/29/24 17:27 02/29/24 19:00 Temperature 98.0 F 98.6 F Pulse Rate [Pulse Oximeter] 60 60 61 Respiratory Rate 18 18 18 Blood Pressure [Ri ght Arm] 144/93 H 129/91 H Pulse Oximetry 100 99 Oxygen Delivery Me thod Room Air Room Air 03/01/24 01:30 03/01/24 01:30 Temperature 98.8 F Pulse Rate [Pulse Oximeter] 61 Respiratory Rate 18 18 Blood Pressure [Ri ght Arm] 153/82 H Pulse Oximetry 98 Oxygen Delivery Me thod Room Air Room Air Podiatry-PN: Obj Labs Labs: Laboratory Results - last 24 hr 02/29/24 06:10 Sodium 139 Potassium 3.0 L Chloride 107 Carbon Dioxide 25 Anion Gap 7 BUN 15 Creatinine 0.7 Estimated Creat Clear 172.28 Estimated GFR 116 Glucose 77 Calcium 9.3 C-Reactive Protein 13.1 H
[2024-03-01] MEDS: ACETAMINOPHEN 325 MG TABLET 650 MG PO ×3 (07:57→23:01)
[2024-03-01] MEDS: FOLIC ACID 1 MG TABLET PO (08:44)
[2024-03-01] MEDS: LACTOBACILLUS ACIDOPHILUS 1 TABLET 2 TAB PO ×3 (08:44→19:14)
[2024-03-01] MEDS: MULTIVITAMIN/MINERALS 1 TABLET 1 TAB PO (08:44)
[2024-03-01] MEDS: timoloL maleate 0.5 % 1 DROP EYE-BOTH ×2 (08:46→21:27)
[2024-03-01] MEDS: BRIMONIDINE TARTRATE 0.2% OPHTH 1 DROP EYE-BOTH ×2 (08:46→21:27)
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
[2024-03-01] MEDS: POTASSIUM BICARB 25 MEQ EFFERVESCENT TAB PO ×2 (11:35→13:17)
[2024-03-01 15:06] LABS: Potassium* 3.9 mmol/L (3.6-5.1)
[2024-03-01 18:15] LABS: C.Difficile Negative (Negative); CDIFFEPI 027 PRESUMPTIVE NEGATIVE (Negative)
[2024-03-01] MEDS: SODIUM CHLORIDE 0.9 % (FLUSH) 10 ML SYRINGE 5 ML IVF (19:26)
[2024-03-01] MEDS: SERTRALINE 50 MG TABLET PO (21:27)
[2024-03-01] MEDS: LATANOPROST 0.005% OPHTH 1 DROP EYE-BOTH (21:27)
[2024-03-01] MEDS: lisinopriL 20 MG TABLET PO (21:28)
[2024-03-01] MEDS: MELATONIN 3 MG TABLET 12 MG PO (21:28)
[2024-03-01] MEDS: allopurinoL 300 MG TABLET PO (21:28)
[2024-03-01] MEDS: hydrOXYzine pamoate 25 MG CAPSULE 100 MG PO (21:30)
[2024-03-02] MEDS: PIPERACILLIN/TAZOBACTAM 3.375 GM in 0.9 % SODIUM CHLORIDE Mini-bag 100 ML IVPB ×2 (01:16→07:08)
[2024-03-02 03:00] VITALS: BP 159/99; PULSE 64; RESP 18; TEMP 36.9; O2SAT 100
--- NOTE | 2024-03-02 05:00 | PC.NURSE ---
Shift note: Pt is alert and oriented, independent in room. He had fever at the beginning of the shift. Tylenol given at 2200 and temperature recheck was 98.5. Dressing clean and dry. Education regarding surgery this morning was given and patient has been NPO since midnight. Pleasant and cooperates with treatment and care. Patient had adequate sleep.
[2024-03-02 06:48] LABS: Basophils Absolute Auto 0.02 K/uL (0.00-0.30); Basophils Percent Auto 0.2 % (0.0-3.0); Eosinophils Absolute Auto 0.13 K/uL (0.00-0.50); Eosinophils Percent Auto 1.6 % (0.0-7.0); Immature Granulocytes Abs Auto 0.06 K/uL (0.00-0.30); Immature Granulocytes Pct Auto 0.7 %; Lymphocytes Percent Auto 16.6 % (20-44); Mean Corpuscular HGB Conc 33 gm/dL (32-36); Mean Corpuscular Hemoglobin 32 pg (26-34); Mean Corpuscular Volume 95 fL (80-100); Monocytes Percent Auto 7.8 % (0.0-11.0); Neutrophils Percent Auto 73.1 % (42.0-72.0); Platelet Count* 150 K/uL (140-440); RDW Coefficient of Variation % 12.5 % (11.5-15.5); Red Blood Count 3.49 m/uL (4.30-5.90); White Blood Count* 8.07 K/uL (4.50-11.00)
[2024-03-02 06:51] LABS: Chloride* 111 mmol/L (96-114); Sodium* 141 mmol/L (135-149)
[2024-03-02 06:52] LABS: Potassium* 3.6 mmol/L (3.6-5.1)
[2024-03-02 06:54] LABS: Anion Gap 8 mEq/L (7-15); Carbon Dioxide* 22 mmol/L (20-32); Creatinine* 0.8 mg/dL (0.5-1.5); Est. Creatinine Clearance* 150.75; Estimated Glomerular Filt Rate 111 ml/min
[2024-03-02 06:55] LABS: Blood Urea Nitrogen* 8 mg/dL (5-24); Calcium* 9.2 mg/dL (8.4-10.6); Glucose* 86 mg/dL (60-115); Slide Review Reflex No
[2024-03-02 07:00] VITALS: RESP 18; O2SAT 100
[2024-03-02] MEDS: BUPIVACAINE 0.25% 30 ML INJECTION (07:28)
--- NOTE | 2024-03-02 08:07 | W.PODPROC_ITS ---
Date of Procedure: 03/02/24 Surgeon: Otoniel Gordillo DPM Pre-op Diagnosis: Gangrene right 2nd toe Post-op Diagnosis: Gangrene right 2nd toe Type of Procedure: Amputation right 2nd toe by MPJ disarticulation Indications: Patient has been hospitalized with severe infection with gas gangrene 3rd toe. He initially had a open amputation and now that the infection has sufficiently resolved the amputation site is being converted to an MPJ disarticulation and closure. I reviewed the procedure, recovery, expectation potential complications. These include but not limited to: Poor wound healing, continued infection, need for future surgery, potential for limb loss, potential loss of life. Patient understands risks and written consent was obtained. Site marked. Procedure Description: Patient brought the operating room placed supine position on operating table. IV sedation was initiated local anesthetic injected into the right foot. He was prepped and draped in sterile fashion. Standard time-out protocol followed. The right foot was then exsanguinated and the tourniquet inflated. Incision was started dorsally at the MPJ and diverged medial and lateral around the base of the 3rd toe and then converged on the plantar aspect of the toe. Incision was carried directly to bone the toe was disarticulated at the metatarsophalangeal joint and removed in total. All necrotic tissue was excised. Remaining tissue appeared viable and healthy. Wound was irrigated with normal sterile saline. Tourniquet was released and all bleeding vessels were cauterized. Incision was closed with 3-0 nylon. The large fissure on the plantar medial great toe was d ebrided skin level only. Mepilex border dressing applied to the toe. Sterile dressing applied to the foot. He was transferred from OR to PACU vital signs stable and vascular status intact. Anesthesia: MAC and local Hemostasis: ankle Estimated blood loss (mL): 5 Specimens: none sent Disposition: floor
[2024-03-02 08:14] VITALS: BP 161/92; PULSE 62; RESP 18; TEMP 36.6; O2SAT 92
--- NOTE | 2024-03-02 08:15 | P.ANES_ITS ---
Anesthesia Charges Start Date/Time Anesthesia Start Date: 03/02/24 Anesthesia Start Time: 07:13 Stop Date/Time Anesthesia Stop Date: 03/02/24 Anesthesia Stop Time: 08:09 Coding CPT Codes CPT Codes: ANESTH LOWER LEG BONE SURG - 43519 ([id number]) P3 - PATIENT W/SEVERE SYS DISEASE, QZ - GOLF COURSE MECHANIC SVC W/O CASTING MACHINE SET UP OPERATOR BY
--- NOTE | 2024-03-02 08:15 | W.ANESCHARGE ---
Anesthesia Charges Start Date/Time Anesthesia Start Date: 03/02/24 Anesthesia Start Time: 07:13 Stop Date/Time Anesthesia Stop Date: 03/02/24 Anesthesia Stop Time: 08:09 Coding CPT Codes CPT Codes: ANESTH LOWER LEG BONE SURG - 14692 ([id number]) P3 - PATIENT W/SEVERE SYS DISEASE, QZ - SPORTS DEVELOPMENT OFFICER SVC W/O STEEL UNLOADER BY
[2024-03-02 08:30] VITALS: BP 157/129; PULSE 62; RESP 18; TEMP 36.6; O2SAT 100
[2024-03-02 08:45] VITALS: BP 162/89; PULSE 62; RESP 18; TEMP 36.6; O2SAT 92
[2024-03-02] MEDS: LOPERAMIDE HCL 2 MG CAPSULE PO (09:43)
[2024-03-02 10:08] VITALS: BP 161/92; PULSE 62; RESP 18; TEMP 36.6; O2SAT 92
--- NOTE | 2024-03-02 10:57 | PC.NURSE ---
shift note; pt up indept in room with post surgical boot. drsg to rt foot c/d/i. vss stable. IV dc'd intact. Reviewed dc instructions and copies sent with pt.
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
== END 2024-03-02 10:00 | disposition home or self-care (01) | DRG 853 ==
LOC: ED 13:40 → MEDSURG 13:41
PROVIDERS: Physician Assistant; Podiatrist; Admitting Provider Family Medicine; Emergency Provider Family Medicine; PCP Family Medicine; Visit Provider Family Medicine
PROC: 0Y6T0Z0 Detachment at Right 3rd Toe, Complete, Open Approach (ICD-10-PCS; principal; 2024-03-02 07:30)
DX: A48.0 Gas gangrene (principal); A41.9 Sepsis, unspecified organism; E87.1 Hypo-osmolality and hyponatremia; D84.81 Immunodeficiency due to conditions classified elsewhere; L03.031 Cellulitis of right toe; B95.4 Other streptococcus as the cause of diseases classified elsewhere; S92.531B Displaced fracture of distal phalanx of right lesser toe(s), initial encounter for open fracture; W22.8XXA Striking against or struck by other objects, initial encounter; G62.9 Polyneuropathy, unspecified; F10.20 Alcohol dependence, uncomplicated; E87.6 Hypokalemia; R19.7 Diarrhea, unspecified; I10 Essential (primary) hypertension; L94.0 Localized scleroderma [morphea]; F17.220 Nicotine dependence, chewing tobacco, uncomplicated; Z89.421 Acquired absence of other right toe(s); Z95.0 Presence of cardiac pacemaker
CPT/HCPCS: 01480; 36415; 71045; 73630; 80048; 80053; 80076; 80306; 83036; 83605; 84132; 84145; 85025; 86140; 87040; 87070; 87186; 87493; 87631; 94761; 97116; 97161; 99284; 99285; A9153; A9270; J0665; J2543; J2704; J3370; J3372; J7030; J7120; S4990

== ENCOUNTER 2024-07-19 08:27 | Outpatient (CLI) | payer OTHER, SELFPAY ==
--- NOTE | 2024-07-19 09:54 | P.ANES_ITS ---
Anesthesia Charges Start Date/Time Anesthesia Start Date: 07/19/24 Anesthesia Start Time: 09:20 Stop Date/Time Anesthesia Stop Date: 07/19/24 Anesthesia Stop Time: 09:40 Coding CPT Codes CPT Codes: ANES LWR INTST NDSC NOS - 62618 ([id number]) QK - CURING MACHINE OPERATOR 2-4 CNCRNT ANES PROC, QX - SIGN LANGUAGE INSTRUCTOR SVC W/ MED DIRECTION, P3 - PATIENT W/SEVERE SYS DISEASE
--- NOTE | 2024-07-19 09:54 | W.ANESCHARGE ---
Anesthesia Charges Start Date/Time Anesthesia Start Date: 07/19/24 Anesthesia Start Time: 09:20 Stop Date/Time Anesthesia Stop Date: 07/19/24 Anesthesia Stop Time: 09:40 Coding CPT Codes CPT Codes: ANES LWR INTST NDSC NOS - 68590 ([id number]) QK - LICENSED JOURNEYMAN ELECTRICIAN 2-4 CNCRNT ANES PROC, QX - SUPERVISOR MAINTENANCE SVC W/ MED DIRECTION, P3 - PATIENT W/SEVERE SYS DISEASE
--- NOTE | 2024-07-19 10:11 | P.ANES_ITS ---
Anesthesia Charges Start Date/Time Anesthesia Start Date: 07/19/24 Anesthesia Start Time: 09:20 Stop Date/Time Anesthesia Stop Date: 07/19/24 Anesthesia Stop Time: 09:40 Coding CPT Codes CPT Codes: SOBEIDA LWR INTST NDSC NOS - 89632 ([id number]) P2 - PATIENT W/MILD SYST DISEASE, QK - EXERCISE SPECIALIST 2-4 CNCRNT ANES PROC, QX - SHIP STEWARD SVC W/ MD MED DIRECTION
--- NOTE | 2024-07-19 10:11 | W.ANESCHARGE ---
Anesthesia Charges Start Date/Time Anesthesia Start Date: 07/19/24 Anesthesia Start Time: 09:20 Stop Date/Time Anesthesia Stop Date: 07/19/24 Anesthesia Stop Time: 09:40 Coding CPT Codes CPT Codes: SOBEIDA LWR INTST NDSC NOS - 83168 ([id number]) P2 - PATIENT W/MILD SYST DISEASE, QK - MORNING CAREGIVER 2-4 CNCRNT ANES PROC, QX - BULK MAIL TECHNICIAN SVC W/ MD MED DIRECTION
== END 2024-07-19 08:28 | disposition home or self-care (01) ==
LOC: OP CLINIC 08:28
PROVIDERS: PCP Family Medicine; Visit Provider Internal Medicine Gastroenterology
DX: Z12.11 Encounter for screening for malignant neoplasm of colon (principal); D12.4 Benign neoplasm of descending colon; D12.8 Benign neoplasm of rectum; K57.30 Diverticulosis of large intestine without perforation or abscess without bleeding
CPT/HCPCS: 00811; 00812; 45385; 88305; J2704